=== PATIENT | female | born 1985 | race Caucasian/White ===

== ENCOUNTER → 2019-12-27 11:08 | Outpatient (BNVA) | payer MEDICARE, MEDICAID, SELFPAY | PROVIDERS: Family Provider Nurse Practitioner; PCP Nurse Practitioner Family; Visit Provider Nurse Practitioner | DX: R68.89 Other general symptoms and signs (principal); J02.9 Acute pharyngitis, unspecified; J10.1 Influenza due to other identified influenza virus with other respiratory manifestations | CPT/HCPCS: 87081; 87804; 87880 ==

== ENCOUNTER → 2020-01-01 10:23 | Outpatient (BNVA) | payer MEDICARE, MEDICAID, SELFPAY | PROVIDERS: Family Provider Nurse Practitioner; PCP Nurse Practitioner Family; Visit Provider Nurse Practitioner | DX: Z79.899 Other long term (current) drug therapy (principal) | CPT/HCPCS: 80164 ==

== ENCOUNTER → 2020-06-24 11:35 | Outpatient (BNVA) | payer MEDICARE, MEDICAID, SELFPAY | PROVIDERS: Family Provider Nurse Practitioner; PCP Nurse Practitioner Family; Visit Provider Nurse Practitioner | DX: R39.9 Unspecified symptoms and signs involving the genitourinary system (principal); F48.9 Nonpsychotic mental disorder, unspecified; F69 Unspecified disorder of adult personality and behavior; R30.0 Dysuria | CPT/HCPCS: 80053; 81003; 85025 ==

== ENCOUNTER → 2020-06-25 10:51 | Outpatient (BNVA) | payer MEDICARE, MEDICAID, SELFPAY | PROVIDERS: Family Provider Nurse Practitioner; PCP Nurse Practitioner Family; Visit Provider Nurse Practitioner | DX: R73.9 Hyperglycemia, unspecified (principal) | CPT/HCPCS: 83036 ==

== ENCOUNTER → 2020-07-08 11:28 | Outpatient (BNVA) | payer MEDICARE, MEDICAID, SELFPAY | PROVIDERS: Family Provider Nurse Practitioner; PCP Nurse Practitioner Family; Visit Provider Nurse Practitioner | DX: F48.9 Nonpsychotic mental disorder, unspecified (principal); F69 Unspecified disorder of adult personality and behavior; R30.0 Dysuria; E11.65 Type 2 diabetes mellitus with hyperglycemia | CPT/HCPCS: 81000 ==

== ENCOUNTER → 2020-08-05 12:00 | Outpatient (BNVA) | payer MEDICARE, MEDICAID, SELFPAY | PROVIDERS: Family Provider Nurse Practitioner; PCP Nurse Practitioner Family; Visit Provider Nurse Practitioner | DX: E11.65 Type 2 diabetes mellitus with hyperglycemia (principal) | CPT/HCPCS: 80048 ==

== ENCOUNTER → 2020-09-16 13:19 | Outpatient (BNVA) | payer MEDICARE, MEDICAID, SELFPAY | PROVIDERS: Family Provider Nurse Practitioner; PCP Nurse Practitioner Family; Visit Provider Nurse Practitioner | DX: E11.65 Type 2 diabetes mellitus with hyperglycemia (principal) | CPT/HCPCS: 81003 ==

== ENCOUNTER → 2020-09-30 10:11 | Outpatient (BNVA) | payer MEDICARE, MEDICAID, SELFPAY | PROVIDERS: Family Provider Nurse Practitioner; PCP Nurse Practitioner Family; Visit Provider Nurse Practitioner | DX: E11.65 Type 2 diabetes mellitus with hyperglycemia (principal); J30.89 Other allergic rhinitis | CPT/HCPCS: 80053; 81003; 83036; 85025 ==

== ENCOUNTER → 2020-12-30 11:05 | Outpatient (BNVA) | payer MEDICARE, MEDICAID, SELFPAY | PROVIDERS: Family Provider Nurse Practitioner; PCP Nurse Practitioner Family; Visit Provider Nurse Practitioner | DX: E11.65 Type 2 diabetes mellitus with hyperglycemia (principal); K21.9 Gastro-esophageal reflux disease without esophagitis; J30.89 Other allergic rhinitis | CPT/HCPCS: 80053; 80061; 82043; 83036 ==

== ENCOUNTER 2021-03-12 16:36 | Emergency (ER) | payer MEDICARE, MEDICAID, SELFPAY ==
[2021-03-12 16:41] VITALS: BMI 48.0
[2021-03-12 16:48] VITALS: BP 129/84; PULSE 67; RESP 16; O2SAT 100
--- NOTE | 2021-03-12 16:48 | ECG_ITS ---
[facility] Test Date: 2021-03-12 Pat Name: Joellen Blair Department: Room: Gender: Female [employer]visor [employer]: : [id number] Requested By: Giacomo Cheng Order Number: [id number] Reading MD: GERALD TRINH Measurements Intervals [place] Rate: 69 P: 38 ID: [id number] QRS: 16 QRSD: 90 T: -5 QT: 397 QTc: 427 Interpretive Statements SINUS RHYTHM NONSPECIFIC T-WAVE ABNORMALITY Compared to ECG 03/25/2018 10:58:00 Sinus bradycardia no longer present T-wave abnormality still present Electronically Signed On 03-12-2021 19:23:44 CDT by GERALD TRINH [id number]
--- NOTE | 2021-03-12 16:52 | ED_ITS ---
HPI - General Adult General: Chief complaint: General Medical Stated complaint: NAUSEA, CP, VERTIGO Time Seen by Provider: 03/12/21 16:44 History of Present Illness: HPI narrative: 35-year-old female brought in due to some nausea, not feeling well may be some chest discomfort and dizziness following her second Covid shot. Patient was at the Covid clinic when the symptoms happen. She is not having throat swelling, shortness of breath, wheezing or other systemic complaints. Patient does have a history of developmental delay. Associated symptoms: Reports chest pain and nausea; Deny dyspnea, headache(s), rash, palpitations or vomiting Review of Systems Const: Reports: other (Please see HPI); Denies: fever(s) or chills Eyes: Denies: change in vision ENMT: Denies: throat pain or odynophagia Card: Reports: chest pain; Denies: palpitations or irregular heart rhythm Resp: Denies: dyspnea or productive cough GI: Reports: nausea; Denies: abdominal pain or vomiting : Denies: flank pain Musc: Denies: neck pain Skin/Breast: Denies: rash or pruritus Neuro: Reports: dizziness; Denies: headache(s) PFS ED PFSH: Medical History Acid reflux Adult BMI 45.0-49.9 kg/sq m Environmental and seasonal allergies Mental and behavioral problem Surgical History History of cholecystectomy 06/05/13 History of venomous spider bite Left leg brown Family History Mother Diabetes Grandmother Diabetes Social History Smoking and tobacco status: never smoked Second hand smoke exposure: No Smoking risk assessment/counseling performed?: No Alcohol intake: never Desire information about alcohol rehabilitation?: No Counseling given: No Desire information about substance/drug rehabilitation?: No Counseling given: No Adopted: No Caregiver/support person: Yes Lives independently: No Household members: caregiver Housing: House Marital status: Single Number of children: 0 service: No Current occupational status: disabled Current occupational exposures/hazards: No Pets and animals: No History of recent travel: No Sexually active: No Current gender identity: Female Special nikos needs: No Physical Exam Const: COMMON NORMALS: no acute distress and no limitations GENERAL APPEARANCE: cooperative HENMT: COMMON NORMALS: normocephalic, moist oral mucous membranes and oropharynx normal HEAD & SCALP: normocephalic Eye: COMMON NORMALS: Equal, round and reactive pupils present PUPIL: Yes Equal, round and reactive pupils present Resp: COMMON NORMALS: normal respiratory effort and clear to auscultation bilaterally EFFORT & INSPECTION: Yes able to speak in complete sentences AUSCULTATION: clear to auscultation bilaterally, no rhonchi, no wheezes and lung sounds not diminished Cardio: COMMON NORMALS: regular rate and regular rhythm RATE: regular rate RHYTHM: regular rhythm GI: COMMON NORMALS: Soft to palpation and non-tender PALPATION: Yes Soft to palpation Extremity: COMMON NORMALS: normal to inspection Neuro: SENSORIUM/ORIENTATION: Yes alert Psych: ATTITUDE: Yes calm Skin: COMMON NORMALS: no rashes or lesions noted GENERAL SKIN EXAM: no rashes or lesions noted Course Vital Signs: Vital signs: Vital Signs Pulse Rate 69 03/12/21 17:26 Respiratory Rate 12 03/12/21 17:26 Blood Pressure 127/82 03/12/21 17:26 Pulse Oximetry 99 03/12/21 17:26 MDM - General Adult Lab Data: Labs: Lab Results 03/12/21 03/12/21 03/12/21 Range/Units 16:25 16:25 17:21 WBC Cancelled 8.4 Corrected WBC Cancelled RBC Cancelled 4.15 Hgb Cancelled 12.8 Hct Cancelled 38.6 MCV Cancelled 93.0 MCH Cancelled 30.8 MCHC Cancelled 33.2 RDW Cancelled 12.5 Plt Count Cancelled 170 MPV Cancelled 9.5 Gran % Cancelled Neut % (Auto) Cancelled 44.4 Lymph % (Auto) Cancelled 44.7 [place] % (Auto) Cancelled 7.7 Eos % (Auto) Cancelled 2.6 Baso % (Auto) Cancelled 0.4 Neut # (Auto) Cancelled 3.72 Lymph # (Auto) Cancelled 3.8 [place] # (Auto) Cancelled 0.7 Eos # (Auto) Cancelled 0.2 Baso # (Auto) Cancelled 0.0 Absolute Gran (aut o) Cancelled Nucleated RBC % (a uto) Cancelled 0 Nucleated RBCs # Cancelled 0.0 Sodium Cancelled Potassium Cancelled Chloride Cancelled Carbon Dioxide Cancelled Anion Gap Cancelled BUN Cancelled Creatinine Cancelled GFR Calculation Cancelled Glucose Cancelled Calculated Osmolal ity Cancelled Calcium Cancelled Total Bilirubin Cancelled AST Cancelled ALT Cancelled Alkaline Phosphata se Cancelled Total Protein Cancelled Albumin Cancelled Globulin Cancelled EKG Data^: EKG 1: EKG interpretation date: 03/12/21 EKG interpretation time: 17:25 Interpretation: HR 69, normal sinus, no st changes- pt moving, no acute findings Discharge Plan Discharge Prescriptions: No Action ibuprofen [IBU-200] 200 mg tablet 200 mg PO Q6H PRNRF: 0 meclizine 25 mg tablet 25 mg PO Q6H PRNRF: 0 risperidone 3 mg tablet 3 mg PO BID RF: 0 sertraline [Zoloft] 100 mg tablet 100 mg PO BID RF: 0 lidocaine HCl 2 % solution 5 ml MUCOUS MEM QID PRN (Reason: pain) Qty: 100 RF: 0 nystatin 100,000 unit/gram cream 1 applic TOPICAL BID PRN (Reason: itching) Qty: 30 RF: 0 (DME) lancets [OneTouch Delica Plus Lancet] 33 gauge misc See Rx Instructions .ROUTE .MEDSUPPLY Qty: 100 RF: 0 (DME) blood-glucose meter [Skybox SecurityTouch Ultra2 Meter] Kit See Rx Instructions .ROUTE .MEDSUPPLY Qty: 1 RF: 0 famotidine [Pepcid] 20 mg tablet 20 mg PO DAILY Qty: 30 RF: 2 montelukast 10 mg tablet 10 mg PO DAILY Qty: 30 RF: 5 acetaminophen 325 mg capsule 325 mg PO Q4H PRN (Reason: fever or pain) Qty: 30 RF: 5 Ozempic 0.25 mg or 0.5 mg(2 mg/1.5 mL) pen injector 0.5 mg SUBCUT .weekly Qty: 1.5 RF: 0 medroxyprogesterone 150 mg/mL syringe 150 mg IM .every 12 weeks Qty: 1 RF: 3 (DME) OneTouch Ultra Blue Test Strip Strip See Rx Instructions .ROUTE .MEDSUPPLY Qty: 50 RF: 5 Coding Level of Care Code ED Strip Machine Tender for Chg Fwd Exam Comprehensive
[2021-03-12] MEDS: lactated ringers 500 ML 999 ML IV (17:25)
[2021-03-12 17:26] VITALS: BP 127/82; PULSE 69; RESP 12; O2SAT 99
[2021-03-12 17:26] LABS: Basophils % 0.4 %; Eosinophils # 0.2 10^3/uL (0.0-0.8); Eosinophils % 2.6 %; Hematocrit 38.6 % (37.0-47.0); Hemoglobin 12.8 g/dL (11.5-15.3); Lymphocytes # 3.8 10^3/uL (0.8-4.8); Lymphocytes % 44.7 %; Mean Corpuscular HGB Conc 33.2 g/dL (30.0-36.0); Mean Corpuscular Hemoglobin 30.8 pg (28.0-34.0); Mean Platelet Volume 9.5 fL (7.4-10.4); Monocytes # 0.7 10^3/uL (0.2-0.9); Monocytes % 7.7 %; Neutrophils # 3.72 10^3/uL (1.8-7.7); Neutrophils % 44.4 %; Nucleated Red Blood Cells % 0 %; Platelet Count 170 10^3/cmm (130-400); Red Blood Count 4.15 10^6/uL (4.1-5.3); Red Cell Distribution Width 12.5 % (12.1-15.1); White Blood Count 8.4 10^3/uL (4.0-10.0)
[2021-03-12] MEDS: ondansetron 2 mg/ML SDV 2 mL 4 MG IVP (17:26)
[2021-03-12 17:55] LABS: Alanine Aminotransferase 9 U/L (0-33); Albumin Level 3.8 g/dL (3.5-5.2); Alkaline Phosphatase 53 IU/L (35-105); Aspartate Amino Transferase 12 U/L (0-32); Blood Urea Nitrogen 11 mg/dL (6-20); Calcium 8.2 mg/dL (8.5-10.5); Carbon Dioxide 23 mmol/L (22-29); Chloride 105 mmol/L (98-107); Globulin 2.6 g/dL (1.3-4.6); Glomerular Filtration Rate 182.7 mL/min (90-130); Glucose 129 mg/dL (65-115); Osmolality Calculated 283 mOsm/kg (285-295); Sodium 136 mmol/L (136-145); Total Bilirubin 0.2 mg/dL (0.15-1.2); Total Protein 6.4 g/dL (6.6-8.7)
[2021-03-12 18:42] VITALS: BP 137/97; PULSE 67; RESP 18; O2SAT 100
== END 2021-03-12 18:44 | disposition home or self-care (01) ==
PROVIDERS: Emergency Provider Student in an Organized Health Care Education/Training Program; PCP Nurse Practitioner Family
DX: R11.0 Nausea (principal); R07.9 Chest pain, unspecified
CPT/HCPCS: 36415; 80053; 85025; 93005; 96374; 99283; J2405

== ENCOUNTER → 2021-03-24 08:30 | Outpatient (BNVA) | payer MEDICARE, MEDICAID, SELFPAY | PROVIDERS: PCP Nurse Practitioner; Visit Provider Nurse Practitioner | DX: E11.65 Type 2 diabetes mellitus with hyperglycemia (principal); J30.89 Other allergic rhinitis | CPT/HCPCS: 80053; 80061; 83036; 85025 ==

== ENCOUNTER → 2021-06-02 09:28 | Outpatient (BNVA) | payer MEDICARE, MEDICAID, SELFPAY | PROVIDERS: PCP Nurse Practitioner; Visit Provider Nurse Practitioner Psychiatric/Mental Health | DX: F48.9 Nonpsychotic mental disorder, unspecified (principal); F69 Unspecified disorder of adult personality and behavior; E11.65 Type 2 diabetes mellitus with hyperglycemia | CPT/HCPCS: 80053; 80061; 80164; 85025 ==

== ENCOUNTER → 2021-09-22 09:17 | Outpatient (BNVA) | payer MEDICARE, MEDICAID, SELFPAY | PROVIDERS: PCP Nurse Practitioner; Visit Provider Nurse Practitioner | DX: E11.65 Type 2 diabetes mellitus with hyperglycemia (principal) | CPT/HCPCS: 80053; 80061; 83036; 85025 ==

== ENCOUNTER → 2021-11-10 09:47 | Outpatient (BNVA) | payer MEDICARE, MEDICAID, SELFPAY | PROVIDERS: PCP Nurse Practitioner; Visit Provider Nurse Practitioner | DX: E11.65 Type 2 diabetes mellitus with hyperglycemia (principal); Z11.3 Encounter for screening for infections with a predominantly sexual mode of transmission | CPT/HCPCS: 81000; 86592 ==

== ENCOUNTER → 2022-02-18 10:47 | Outpatient (BNVA) | payer MEDICARE, MEDICAID, SELFPAY | PROVIDERS: PCP Nurse Practitioner; Visit Provider Nurse Practitioner | DX: Z12.4 Encounter for screening for malignant neoplasm of cervix (principal); E11.65 Type 2 diabetes mellitus with hyperglycemia; J30.89 Other allergic rhinitis | CPT/HCPCS: 80053; 80061; 82043; 83036; 88175 ==

== ENCOUNTER 2022-03-09 08:53 | Outpatient (CLI) | payer MEDICARE, MEDICAID, SELFPAY ==
--- NOTE | 2022-03-09 09:07 | XR_ITS ---
WS: [id number] Exam: XR abdomen 1V* [id number] Date/Time of Exam: 03/09/2022 9:10 AM Reason For Exam: R15.9 - Full incontinence of feces No bowel obstruction or free air. Visualized organ margins are unremarkable in appearance. Signs of p rior cholecystectomy. Moderate amount of stool in the right and left colon. Bony structures are intac t. XR/XR abdomen 1V* [id number] IMPRESSION: 1. No acute abdominal process. 2. Moderate amount of retained stool in the colon.
== END 2022-03-09 08:54 | disposition home or self-care (01) ==
LOC: RAD 09:00
PROVIDERS: PCP Nurse Practitioner; Visit Provider Nurse Practitioner
DX: R15.9 Full incontinence of feces (principal)
CPT/HCPCS: 74018

== ENCOUNTER → 2022-04-16 14:59 | Outpatient (BNVA) | payer MEDICARE, MEDICAID, SELFPAY | PROVIDERS: PCP Nurse Practitioner; Visit Provider Nurse Practitioner Family | DX: J02.9 Acute pharyngitis, unspecified (principal); Z20.822 Contact with and (suspected) exposure to COVID-19 | CPT/HCPCS: 87071; 87635; 87880 ==

== ENCOUNTER → 2022-04-22 10:29 | Outpatient (BNVA) | payer MEDICARE, MEDICAID, SELFPAY | PROVIDERS: PCP Nurse Practitioner; Visit Provider Nurse Practitioner | DX: K59.01 Slow transit constipation (principal); E11.65 Type 2 diabetes mellitus with hyperglycemia; J30.89 Other allergic rhinitis; K21.9 Gastro-esophageal reflux disease without esophagitis; M79.10 Myalgia, unspecified site; Z68.41 Body mass index [BMI] 40.0-44.9, adult | CPT/HCPCS: 80053; 83036; 85025 ==

== ENCOUNTER → 2022-08-03 14:44 | Outpatient (BNVA) | payer MEDICARE, MEDICAID, SELFPAY | PROVIDERS: PCP Nurse Practitioner; Visit Provider Nurse Practitioner | DX: E11.65 Type 2 diabetes mellitus with hyperglycemia (principal); Z30.42 Encounter for surveillance of injectable contraceptive; J30.89 Other allergic rhinitis; K59.01 Slow transit constipation | CPT/HCPCS: 80053; 81000; 83036 ==

== ENCOUNTER → 2022-09-02 08:42 | Outpatient (BNVA) | payer MEDICARE, MEDICAID, SELFPAY | PROVIDERS: PCP Nurse Practitioner; Visit Provider Psychiatry & Neurology Psychiatry | DX: F39 Unspecified mood [affective] disorder (principal) | CPT/HCPCS: 80053; 80164; 85025 ==

== ENCOUNTER → 2022-10-26 08:59 | Outpatient (BNVA) | payer MEDICARE, MEDICAID, SELFPAY | PROVIDERS: PCP Nurse Practitioner; Visit Provider Nurse Practitioner | DX: E11.65 Type 2 diabetes mellitus with hyperglycemia (principal); J30.89 Other allergic rhinitis; K21.9 Gastro-esophageal reflux disease without esophagitis; E66.9 Obesity, unspecified | CPT/HCPCS: 80053; 83036 ==

== ENCOUNTER → 2023-01-18 08:37 | Outpatient (BNVA) | payer MEDICARE, MEDICAID, SELFPAY | PROVIDERS: PCP Nurse Practitioner; Visit Provider Nurse Practitioner | DX: E11.65 Type 2 diabetes mellitus with hyperglycemia (principal); J30.89 Other allergic rhinitis; Z30.42 Encounter for surveillance of injectable contraceptive | CPT/HCPCS: 82043 ==

== ENCOUNTER → 2023-03-03 10:23 | Outpatient (BNVA) | payer MEDICARE, MEDICAID, SELFPAY | PROVIDERS: PCP Nurse Practitioner; Visit Provider Nurse Practitioner | DX: E11.65 Type 2 diabetes mellitus with hyperglycemia (principal) | CPT/HCPCS: 80053; 81000; 83036; 85025 ==

== ENCOUNTER 2023-03-17 11:09 | Emergency (ER) | payer MEDICARE, MEDICAID, SELFPAY ==
[2023-03-17 11:42] VITALS: BP 115/85; PULSE 81; RESP 16; TEMP 36.4; O2SAT 99; BMI 33.3
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
== END 2023-03-17 13:38 | disposition home or self-care (01) ==
PROVIDERS: Emergency Provider Physician Assistant; PCP Nurse Practitioner
DX: Z04.1 Encounter for examination and observation following transport accident (principal); F79 Unspecified intellectual disabilities; V89.2XXA Person injured in unspecified motor-vehicle accident, traffic, initial encounter
CPT/HCPCS: 99282

== ENCOUNTER → 2023-04-26 11:24 | Outpatient (BNVA) | payer MEDICARE, MEDICAID, SELFPAY | PROVIDERS: PCP Nurse Practitioner; Visit Provider Nurse Practitioner | DX: F39 Unspecified mood [affective] disorder (principal); F48.9 Nonpsychotic mental disorder, unspecified; F69 Unspecified disorder of adult personality and behavior | CPT/HCPCS: 80053; 80164; 85025 ==

== ENCOUNTER → 2023-05-05 10:14 | Outpatient (BNVA) | payer MEDICARE, MEDICAID, SELFPAY | PROVIDERS: PCP Nurse Practitioner; Visit Provider Nurse Practitioner | DX: K59.01 Slow transit constipation (principal); R15.9 Full incontinence of feces | CPT/HCPCS: 74018 ==

== ENCOUNTER → 2023-09-06 13:48 | Outpatient (BNVA) | payer MEDICARE, MEDICAID, SELFPAY | PROVIDERS: PCP Nurse Practitioner; Visit Provider Nurse Practitioner | DX: E11.65 Type 2 diabetes mellitus with hyperglycemia (principal) | CPT/HCPCS: 80053; 83036 ==

== ENCOUNTER → 2023-10-21 13:29 | Outpatient (BNVA) | payer MEDICARE, MEDICAID, SELFPAY | PROVIDERS: PCP Nurse Practitioner; Visit Provider Podiatrist Foot & Ankle Surgery | DX: B35.1 Tinea unguium (principal); L84 Corns and callosities; G62.9 Polyneuropathy, unspecified; E11.42 Type 2 diabetes mellitus with diabetic polyneuropathy | CPT/HCPCS: 11056; 11721; 99203 ==

== ENCOUNTER 2023-11-05 13:48 | Outpatient (CLI) | payer MEDICARE, MEDICAID, SELFPAY ==
[2023-11-06 23:45] LABS: Clostridium Difficile PCR NOT DETECTED (NOT DETECTED)
== END 2023-11-05 13:49 | disposition home or self-care (01) ==
PROVIDERS: Nurse Practitioner Family; PCP Nurse Practitioner; Visit Provider Nurse Practitioner
DX: R19.7 Diarrhea, unspecified (principal)
CPT/HCPCS: 87493

== ENCOUNTER → 2023-11-29 15:03 | Outpatient (BNVA) | payer MEDICARE, MEDICAID, SELFPAY | PROVIDERS: PCP Nurse Practitioner; Visit Provider Nurse Practitioner | DX: Z11.3 Encounter for screening for infections with a predominantly sexual mode of transmission (principal); E11.65 Type 2 diabetes mellitus with hyperglycemia | CPT/HCPCS: 80053; 80061; 81003; 83036; 85025; 86592; 87086 ==

== ENCOUNTER 2023-11-30 13:18 | Outpatient (CLI) | payer MEDICARE, MEDICAID, SELFPAY ==
--- NOTE | 2023-11-30 13:22 | XR_ITS ---
WS: [id number] ABDOMEN 1 VIEW(S) HISTORY: R15.9 - Full incontinence of feces COMPARISON: None available. Normal amount of fecal material throughout the colon. No significant impaction identified. No suspicious calcifications or masses. No bone abnormality. Prior cholecystectomy. IMPRESSION: Normal bowel gas pattern. No significant fecal impaction.
== END 2023-11-30 13:19 | disposition home or self-care (01) ==
LOC: LAB 13:19
PROVIDERS: PCP Nurse Practitioner; Visit Provider Nurse Practitioner
DX: R15.9 Full incontinence of feces (principal)
CPT/HCPCS: 74018

== ENCOUNTER 2023-12-25 20:19 | Emergency (ER) | payer MEDICARE, MEDICAID, SELFPAY ==
[2023-12-25 20:25] VITALS: BP 117/78; PULSE 74; RESP 16; TEMP 36.3; O2SAT 98; BMI 33.4
[2023-12-25 20:51] VITALS: BP 99/66; PULSE 75; RESP 14; O2SAT 100
[2023-12-25 20:59] LABS: Add Urine Microscopic? YES; Bilirubin Urine Neg (Negative); Blood Urine Neg (Negative); Glucose Urine UA Norm (Normal); Ketones Urine Negative (Negative); Leukocyte Esterase Urine 1+ (Negative); Nitrate Urine Negative (Negative); Protein Urine Neg (Negative); Specific Gravity, Urine 1.005 (1.005-1.030); Urine Appearance Clear (CLEAR); Urine Color Yellow (Yellow); Urobilinogen Urine Norm (Negative); pH Urine 6.5 (5-7)
[2023-12-25 21:01] LABS: RBC Urine 0-4 /hpf (0-2)
[2023-12-25 21:02] LABS: Add Urine Culture? Yes; Bacteria Urine TRACE /hpf; Squamous Epithelial Cell Urine 0-4 /hpf (0-5)
[2023-12-25 21:08] LABS: Basophils % 0.4 %; Eosinophils # 0.3 10^3/uL (0.0-0.8); Eosinophils % 3.7 %; Hematocrit 40.4 % (36-47); Lymphocytes # 3.9 10^3/uL (0.8-4.8); Mean Corpuscular HGB Conc 34.9 g/dL (30-55); Mean Corpuscular Hemoglobin 33.8 pg (27-33); Mean Corpuscular Volume 96.9 fl (85-98); Mean Platelet Volume 9.8 fL (7.4-10.4); Monocytes # 0.6 10^3/uL (0.2-0.9); Monocytes % 7.4 %; Neutrophils # 3.27 10^3/uL (1.8-7.7); Neutrophils % 40.3 %; Nucleated Red Blood Cells % 0 %; Platelet Count 94 10^3/cmm (157-399); Red Blood Count 4.17 10^6/uL (3.85-5.65); Red Cell Distribution Width 12.2 % (12.1-15.1); White Blood Count 8.12 10^3/uL (3.29-11.43)
[2023-12-25 21:24] LABS: Lactic Sepsis W/Reflex 1.1 mmol/L (0.5-2.2)
[2023-12-25 21:25] LABS: Alanine Aminotransferase 17 U/L (0-33); Albumin Level 3.8 g/dL (3.5-5.2); Alkaline Phosphatase 54 U/L (35-105); Anion Gap 12.5 (5-19); Aspartate Amino Transferase 25 U/L (0-32); Blood Urea Nitrogen 13 mg/dL (6-20); Calcium 8.7 mg/dL (8.5-10.5); Carbon Dioxide 26 mmol/L (22-29); Chloride 103 mmol/L (98-107); Globulin 2.6 g/dL (1.3-4.6); Glomerular Filtration Rate 94.2 mL/min (90-130); Glucose 107 mg/dL (65-115); HCG, Serum Qual Negative (Negative); Lipase 33 U/L (13-60); Osmolality Calculated 287 mOsm/kg (285-295); Potassium 3.5 mmol/L (3.5-5.1); Sodium 138 mmol/L (136-145); Total Bilirubin 0.3 mg/dL (0.15-1.2); Total Protein 6.4 g/dL (6.6-8.7)
--- NOTE | 2023-12-25 21:40 | CTR_ITS ---
PROCEDURE INFORMATION: Exam: CT Abdomen And Pelvis Without Contrast Exam date and time: 12/25/2023 10:10 PM Age: 38 years old Clinical indication: Abdominal pain; Prior surgery; Surgery date: 6+ months; Surgery type: Gb; Patient HX: Left flank pain with dysuria. TECHNIQUE: Imaging protocol: Computed tomography of the abdomen and pelvis without contrast. Radiation optimization: All CT scans at this facility use at least one of these dose optimization techniques: automated exposure control; mA and/or kV adjustment per patient size (includes targeted exams where dose is matched to clinical indication); or iterative reconstruction. COMPARISON: CR XR abdomen 1V* [id number] 11/30/2023 1:41 PM RADIATION DOSE METRICS: Total DLP (mGy-cm): 884.89 FINDINGS: Lungs: Small bilateral pleural effusions. Diaphragm: No evidence of diaphragmatic defect. Liver: No evidence of focal hepatic lesion within limitation of a noncontrast exam. Gallbladder and bile ducts: Status post cholecystectomy. No evidence of intrahepatic or extrahepatic biliary dilatation. Pancreas: Grossly unremarkable. Spleen: Grossly unremarkable. Adrenal glands: Grossly unremarkable. Kidneys and ureters: No gross renal parenchymal abnormality. No evidence of hydronephrosis or ureteral stone. A pelvic phleboliths is noted in the left hemipelvis (image 183 of the axial series 3). Stomach and bowel: No evidence of bowel obstruction or perienteric inflammatory changes. Appendix: Normal appendix. Intraperitoneal space: No evidence of free air or fluid collection. Vasculature: No evidence of aneurysmal dilitation of abdominal aorta. Lymph nodes: No evidence of adenopathy. Urinary bladder: Mild bladder wall thickening/haziness. Otherwise grossly unremarkable. Reproductive: Question prior supracervical hysterectomy. There is mild laxity of the pelvic floor. Bones/joints: No evidence of acute fracture or aggresive osseous lesion. Soft tissues: No evidence of fluid collection or hematoma in the superficial soft tissues. CT/CT kidney stone [id number] IMPRESSION: 1. Possible cystitis. Otherwise no evidence of acute abnormality in the abdomen or pelvis within limitations of a noncontrast exam. 2. Small bilateral pleural effusions.
--- NOTE | 2023-12-25 21:43 | W.ED.ABDPA2 ---
HPI - Abdominal Pain General: Chief Complaint: Abdominal Pain Stated Complaint: pain low left abd and stomach Time Seen by Provider: 12/25/23 20:38 History of Present Illness: 38-year-old female with a history of developmental delay. She presents with left lower quadrant and left flank pain that started today. She did not eat supper, which is abnormal for her. She complains of some diarrhea, and dysuria. No vomiting. No fever. No history of kidney stone. She does have a history of cholecystectomy. Associated Symptoms: Reports diarrhea, dysuria and nausea; Denies chills, fever(s), hematochezia and vomiting Review of Systems Const: Denies: fever(s), chills or body aches Eyes: Denies: change in vision Card: Denies: chest pain or palpitations Resp: Denies: dyspnea, productive cough, non-productive cough or wheezing GI: Reports: abdominal pain, nausea and diarrhea; Denies: vomiting or hematochezia : Reports: flank pain and dysuria; Denies: difficulty voiding Skin/Breast: Denies: rash Neuro: Denies: headache(s), weakness in extremities, dizziness or confusion PFSH ED PFSH: Medical History Obesity, Class I, BMI 30-34.9 Depo-Provera contraceptive status Acid reflux Environmental and seasonal allergies Mental and behavioral problem Surgical History History of venomous spider bite Left leg brown History of cholecystectomy 06/05/13 Family History Mother Diabetes Grandmother Diabetes Social History Smoking and tobacco/nicotine status: never used tobacco/nicotine Second hand smoke exposure: No Alcohol intake: never Substance/Drug Use: never Adopted: No Caregiver/support person: Yes Lives independently: No Household members: caregiver Housing: House Marital status: Single Number of children: 0 service: No Current occupational status: disabled Current occupational exposures/hazards: No Pets and animals: No Sexually active: No Do you think of yourself as: Straight/Heterosexual Current gender identity: Female Special nikos needs: No Physical Exam Const: COMMON NORMALS: no acute distress GENERAL APPEARANCE: cooperative; not ill appearing and not frail appearing HENMT: COMMON NORMALS: normocephalic, atraumatic and Normal external nose present HEAD & SCALP: normocephalic and atraumatic FACE & SINUS: normal facial exam and face symmetric NOSE: Normal external nose present Eye: COMMON NORMALS: Equal, round and reactive pupils present and EOMs intact bilaterally PUPIL: Yes Equal, round and reactive pupils present Neck/C-Spine: GENERAL: Yes trachea midline Chest: CHEST: Yes Symmetrical chest wall rise Resp: COMMON NORMALS: normal respiratory effort, No retractions, No use of accessory muscles and clear to auscultation bilaterally AUSCULTATION: clear to auscultation bilaterally Cardio: COMMON NORMALS: regular rate and regular rhythm RATE: regular rate RHYTHM: regular rhythm GI: COMMON NORMALS: Normal to inspection, nondistended, normoactive bowel sounds present PALPATION: Yes Tenderness to palpation present (GI) Details: LLQ : BLADDER/KIDNEY EXAM: Yes CVA tenderness on the left Back/Pelvis: GENERAL BACK: Yes CVA tenderness Extremity: COMMON NORMALS: no pedal edema Neuro: AVINASH COMA SCALE: document GCS findings [place] coma scale eye opening: Spontaneous [place] coma scale verbal response: Orientated [place] coma scale motor response: Obey commands [place] coma scale total score: 15 SENSORY EXAM: Yes extremities (intact) Psych: COMMON NORMALS: speech normal SPEECH: Yes normal speech Skin: COMMON NORMALS: no rashes or lesions noted GENERAL SKIN EXAM: no rashes or lesions noted Course Vital Signs: Vital signs: Vital Signs Temperature 97.4 F L 12/25/23 20:25 Pulse Rate 60 12/25/23 22:05 Respiratory Rate 18 12/25/23 22:05 Blood Pressure 111/80 12/25/23 22:05 Pulse Oximetry 100 12/25/23 22:05 Oxygen Delivery Me thod Room Air 12/25/23 22:05 MDM - Abdominal Pain Medical Decision Making Urinalysis shows urinary tract infection with hematuria. Platelet count is 94. Other laboratory is not remarkable. CT shows cystitis but no other evidence of acute abdominal pathology including kidney stone. Will allow discharge. Treatment for UTI. To return for worsening symptoms. Lab Data 12/25/23 20:59 12/25/23 20:59 Labs/Radiology: Radiology Impressions Abdomen/Pelvis CT 12/25/23 21:40 IMPRESSION: 1. Possible cystitis. Otherwise no evidence of acute abnormality in the abdomen or pelvis within limitations of a noncontrast exam. 2. Small bilateral pleural effusions. Laboratory Results WBC 8.12 10^3/uL (3.29-11.43) 12/25/23 20:59 RBC 4.17 10^6/uL (3.85-5.65) 12/25/23 20:59 Hgb 14.10 g/dL (11.27-16.99) 12/25/23 20:59 Hct 40.4 % (36-47) 12/25/23 20:59 MCV 96.9 fl (85-98) 12/25/23 20:59 MCH 33.8 pg (27-33) H 12/25/23 20:59 MCHC 34.9 g/dL (30-55) 12/25/23 20:59 RDW 12.2 % (12.1-15.1) 12/25/23 20:59 Plt Count 94 10^3/cmm (157-399) L 12/25/23 20:59 MPV 9.8 fL (7.4-10.4) 12/25/23 20:59 Neut % (Auto) 40.3 % 12/25/23 20:59 Lymph % (Auto) 48.0 % 12/25/23 20:59 [place] % (Auto) 7.4 % 12/25/23 20:59 Eos % (Auto) 3.7 % 12/25/23 20:59 Baso % (Auto) 0.4 % 12/25/23 20:59 Neut # (Auto) 3.27 10^3/uL (1.8-7.7) 12/25/23 20:59 Lymph # (Auto) 3.9 10^3/uL (0.8-4.8) 12/25/23 20:59 [place] # (Auto) 0.6 10^3/uL (0.2-0.9) 12/25/23 20:59 Eos # (Auto) 0.3 10^3/uL (0.0-0.8) 12/25/23 20:59 Baso # (Auto) 0.0 10^3/uL (0.0-0.1) 12/25/23 20:59 Nucleated RBC % (auto) 0 % 12/25/23 20:59 Nucleated RBCs # 0.0 /100WBC 12/25/23 20:59 Sodium 138 mmol/L (136-145) 12/25/23 20:59 Potassium 3.5 mmol/L (3.5-5.1) 12/25/23 20:59 Chloride 103 mmol/L (98-107) 12/25/23 20:59 Carbon Dioxide 26 mmol/L (22-29) 12/25/23 20:59 Anion Gap 12.5 (5-19) 12/25/23 20:59 BUN 13 mg/dL (6-20) 12/25/23 20:59 Creatinine 0.7 mg/dL (0.5-0.9) 12/25/23 20:59 GFR Calculation 94.2 mL/min (90-130) 12/25/23 20:59 Glucose 107 mg/dL (65-115) 12/25/23 20:59 Calculated Osmolality 287 mOsm/kg (285-295) 12/25/23 20:59 Lactic Acid 1.1 mmol/L (0.5-2.2) 12/25/23 20:59 Calcium 8.7 mg/dL (8.5-10.5) 12/25/23 20:59 Total Bilirubin 0.3 mg/dL (0.15-1.2) 12/25/23 20:59 AST 25 U/L (0-32) 12/25/23 20:59 ALT 17 U/L (0-33) 12/25/23 20:59 Alkaline Phosphatase 54 U/L (35-105) 12/25/23 20:59 C-Reactive Protein 3.0 mg/L (0.0-4.9) 12/25/23 20:59 Total Protein 6.4 g/dL (6.6-8.7) L 12/25/23 20:59 Albumin 3.8 g/dL (3.5-5.2) 12/25/23 20:59 Globulin 2.6 g/dL (1.3-4.6) 12/25/23 20:59 Lipase 33 U/L (13-60) 12/25/23 20:59 HCG, Qual Negative (Negative) 12/25/23 20:59 Urine Color Yellow (Yellow) 12/25/23 20:50 Urine Appearance Clear (CLEAR) 12/25/23 20:50 Urine pH 6.5 (5-7) 12/25/23 20:50 Ur Specific [place] 1.005 (1.005-1.030) 12/25/23 20:50 Urine Protein Neg (Negative) 12/25/23 20:50 Urine Glucose (UA) Norm (Normal) 12/25/23 20:50 Urine Ketones Negative (Negative) 12/25/23 20:50 Urine Blood Neg (Negative) 12/25/23 20:50 Urine Nitrate Negative (Negative) 12/25/23 20:50 Urine Bilirubin Neg (Negative) 12/25/23 20:50 Urine Urobilinogen Norm mg/dL (Negative) 12/25/23 20:50 Ur Leukocyte Esterase 1+ (Negative) H 12/25/23 20:50 Urine RBC 0-4 /hpf (0-2) H 12/25/23 20:50 Urine WBC 5-10 /hpf (0-5) H 12/25/23 20:50 Ur Squamous Epith Cells 0-4 /hpf (0-5) H 12/25/23 20:50 Amorphous Sediment Not Reportable 12/25/23 20:50 Urine Bacteria Trace /hpf (NONE) 12/25/23 20:50 Urine Yeast Trace /hpf 12/25/23 20:50 All radiology interpretation(s) finalized by discharge Discharge Plan Discharge Patient Disposition: Home Clinical Impression: Pyelonephritis Condition: Stable Prescriptions: New ketorolac 10 mg tablet 10 mg PO TID PRN (Reason: pain) Qty: 10 0RF Bactrim DS 800-160 mg tablet 1 tab PO BID 7 Days Qty: 14 0RF No Action sertraline [Zoloft] 100 mg tablet 100 mg PO DAILY@0800 (DME) lancets [OneTouch Delica Plus Lancet] 33 gauge misc See Rx Instructions .ROUTE .MEDSUPPLY Qty: 100 0RF Rx Instructions: daily (DME) blood-glucose meter [Ace[employer] TechnologiesTouch Ultra2 Meter] Kit See Rx Instructions .ROUTE .MEDSUPPLY Qty: 1 0RF Rx Instructions: daily acetaminophen 325 mg capsule 325 mg PO Q4H PRN (Reason: fever or pain) Qty: 30 5RF Cepacol Sore Throat (neftali-men) 15-3.6 mg lozenge 1 jose maria mucous membrane Q2H PRN (Reason: sore throat) Qty: 16 5RF Dimetapp DM Cold-Cough (PE) 1-2.5-5 mg/5 mL solution 5 ml PO Q4H PRN (Reason: cough and congestion) Qty: 118 5RF calcium carbonate [Tums] 200 mg calcium (500 mg) tablet,chewable 200 mg PO TID PRN (Reason: dyspepsia) Qty: 30 5RF ibuprofen [IBU-200] 200 mg tablet 200 mg PO Q6H PRN (Reason: fever/pain) Qty: 30 2RF azelastine 137 mcg (0.1 %) aerosol,spray 2 spray intranasal .at bedtime Qty: 30 2RF Rx Instructions: administer into each nostril calcium carbonate-vitamin D3 [Os-Usman 500 + D3] 500 mg-15 mcg (600 unit) tablet 1 tab PO .2 times day Qty: 60 5RF cetirizine [Zyrtec] 10 mg tablet 10 mg PO DAILY Qty: 30 5RF fluticasone propionate [Flonase Allergy Relief] 50 mcg/actuation spray,suspension 1 spray intranasal DAILY Qty: 16 5RF Rx Instructions: administer into each nostril semaglutide 0.25 mg or 0.5 mg(2 mg/1.5 mL) pen injector 0.25 mg SUBCUT Q7D Qty: 1.5 5RF Rx Instructions: take on Wednesday (DME) pen needle, diabetic 33 gauge x needle See Rx Instructions .ROUTE .MEDSUPPLY Qty: 100 5RF Rx Instructions: 1 time week Senna Plus 8.6-50 mg capsule 1 tab-cap PO .at bedtime Qty: 30 5RF Hold Instructions: Doctor's Order [id number]-rbizznnwz-QH 3.5-10,000-1 mg/mL-unit/mL-% drops,suspension 4 drp otic (ear) TID 10 Days Qty: 10 0RF Rx Instructions: right ear medroxyprogesterone 150 mg/mL syringe 150 mg IM .every 12 weeks Qty: 1 3RF (DME) diabetic shoes with 3 inserts See Rx Instructions .Route .MEDSUPPLY Qty: 1 0RF Rx Instructions: As directed to the angel danielle (EVA) blood sugar diagnostic Strip See Rx Instructions .ROUTE .MEDSUPPLY Qty: 50 5RF Rx Instructions: one daily risperidone 4 mg tablet 2 mg PO TID@08,15,20 divalproex 500 mg tablet extended release 24 hr 1,000 mg PO BEDTIME@2000 divalproex 250 mg tablet extended release 24 hr 250 mg PO BID@0800,1400 Discharge Orders: Discharge ED (Routine); Ordered 12/25/23 Ordered By: Jesus Alberto Gutierrez Referrals: Ying Li, OMAIRA-C [Primary Care Provider] - 1-3 days Patient Instructions: Kidney Infection (ED), Opioid Safety, Pain Management Activity Restrictions/Additional Instructions: Antibiotics as directed. Use pain medication as needed. Return for worsening pain despite treatment, vomiting liquids or medications, fever despite 2-3 more doses of antibiotics, other concerning symptoms. See your doctor next week. Coding Level of Care Code ED Risk And Compliance Analytics Director for Amanda Olivas
[2023-12-25] MEDS: ondansetron 2 mg/ML SDV 2 mL 4 MG IVP (22:02)
[2023-12-25 22:03] VITALS: RESP 18; O2SAT 100
[2023-12-25] MEDS: morphine 4 mg/mL SDV 1 mL IVP (22:03)
[2023-12-25 22:05] VITALS: BP 111/80; PULSE 60; RESP 18; O2SAT 100
[2023-12-25] MEDS: sulfamethoxazole-trimeth DS 160-800 mg Tablet 1 TAB PO (23:32)
[2023-12-25 23:47] VITALS: BP 111/80; PULSE 67; O2SAT 98
== END 2023-12-25 23:49 | disposition home or self-care (01) ==
PROVIDERS: Emergency Provider Emergency Medicine; PCP Nurse Practitioner
DX: N12 Tubulo-interstitial nephritis, not specified as acute or chronic (principal)
CPT/HCPCS: 36415; 74176; 80053; 81001; 83605; 83690; 84703; 85025; 86140; 87086; 96374; 96375; 99285; J2270; J2405

== ENCOUNTER → 2024-01-10 09:43 | Outpatient (BNVA) | payer MEDICARE, MEDICAID, SELFPAY | PROVIDERS: PCP Nurse Practitioner; Visit Provider Nurse Practitioner | DX: N39.0 Urinary tract infection, site not specified (principal) | CPT/HCPCS: 81000 ==

== ENCOUNTER → 2024-01-17 11:13 | Outpatient (BNVA) | payer MEDICARE, MEDICAID, SELFPAY | PROVIDERS: PCP Nurse Practitioner; Visit Provider Podiatrist Foot & Ankle Surgery | DX: E11.42 Type 2 diabetes mellitus with diabetic polyneuropathy (principal); B35.1 Tinea unguium; L84 Corns and callosities; G62.9 Polyneuropathy, unspecified | CPT/HCPCS: 11721 ==

== ENCOUNTER → 2024-02-10 10:09 | Outpatient (BNVA) | payer MEDICARE, MEDICAID, SELFPAY | PROVIDERS: PCP Nurse Practitioner; Visit Provider Nurse Practitioner | DX: D75.839 Thrombocytosis, unspecified (principal) | CPT/HCPCS: 85025 ==

== ENCOUNTER 2024-03-24 15:25 | Inpatient (IN) | payer MEDICARE, MEDICAID, SELFPAY ==
[2024-03-24 15:31] VITALS: BP 103/69; PULSE 77; RESP 18; TEMP 36.7; O2SAT 100; BMI 34.0
--- NOTE | 2024-03-24 16:10 | ED.C_ITS ---
HPI - Psych 2 General: Chief Complaint: Psychiatric Symptoms Stated Complaint: SI Time Seen by Provider: 03/24/24 15:48 Source: patient and other (care staff) Mode of arrival: ambulatory Limitations: no limitations History of Present Illness: Patient is a 38-year-old female who presents along with her care staff from her [facility] for concerns of self harming behaviors, suicidal statements, and other dangerous behaviors. Care staff states yesterday [place] day rehab, [place] Care staff states today she took a pair of scissors and a pizza slicer and held it to her arms/wrists and attempted to cut herself in a reported suicide attempt. Patient states she feels very depressed and misses her mother. Care staff is worried that they are not able to keep patient safe at home with her current behaviors and is requesting hospitalization. MD complaint: suicidal ideation, feels depressed and other (dangerous behaviors) Onset (ago): day(s) History of same: Yes Relieving factors: none Exacerbating factors: none Associated psychiatric symptoms: depression and suicidal ideation Associated symptoms: Reports depression and suicidal ideation; Deny auditory hallucinations, visual hallucinations or homicidal ideation Treatments prior to arrival: none If self harm: admits thoughts of self harm and has acted on plan Review of Systems 2 Const: Denies: fever(s) or chills Card: Denies: chest pain, palpitations, lightheadedness or syncope Resp: Denies: dyspnea GI: Denies: abdominal pain, nausea, vomiting or diarrhea Skin/Breast: Denies: rash Neuro: Denies: headache(s) Psych: Reports: anxiety, depression, mood swings, suicidal ideation and other; Denies: visual hallucinations, auditory hallucinations or homicidal ideation PFSH ED 2 PFSH: Medical History Obesity, Class I, BMI 30-34.9 Depo-Provera contraceptive status Acid reflux Environmental and seasonal allergies Mental and behavioral problem Surgical History History of venomous spider bite Left leg brown History of cholecystectomy 06/05/13 Family History Mother Diabetes Grandmother Diabetes Social History (Reviewed 03/24/24 @ 17:54 by ROSALINE Root Smoking and tobacco/nicotine status: never used tobacco/nicotine Second hand smoke exposure: No Alcohol intake: never Substance/Drug Use: never Adopted: No Caregiver/support person: Yes Lives independently: No Household members: caregiver Housing: House Marital status: Single Number of children: 0 service: No Current occupational status: disabled Current occupational exposures/hazards: No Pets and animals: No Sexually active: No Do you think of yourself as: Straight/Heterosexual Current gender identity: Female Special nikos needs: No Physical Exam 2 Const: COMMON NORMALS: no acute distress, alert and well nourished GENERAL APPEARANCE: cooperative OTHER: baseline cognitive delay HENMT: COMMON NORMALS: normocephalic and atraumatic HEAD & SCALP: normal to inspection, normocephalic and atraumatic Neuro: COMMON NORMALS: moves all extremities, no focal motor deficits and no sensory deficits noted SENSORIUM/ORIENTATION: Yes alert Psych: COMMON NORMALS: speech normal, activity/motor behavior normal, denies hallucinations and denies homicidal ideation ATTITUDE: Yes calm A CTIVITY/MOTOR BEHAVIOR: Yes appropriate eye contact SPEECH: Yes normal speech MOOD & AFFECT: Yes tearful MEMORY/COGNITION: Yes cognition grossly impaired INSIGHT: Limited insight present (Psych) JUDGEMENT: Limited judgement present (Psych) Course 2 Consultations: Consultation #1: Dr. Proctor-will telepsych with patient and decide disposition from there -he will admit patient to [facility] Vital Signs: Vital signs: Vital Signs Temperature 98.1 F 03/24/24 15:31 Pulse Rate 77 03/24/24 15:31 Respiratory Rate 18 03/24/24 15:31 Blood Pressure 103/69 03/24/24 15:31 Pulse Oximetry 100 03/24/24 15:31 Oxygen Delivery Me thod Room Air 03/24/24 15:31 MDM - Psych Medical Decision Making Patient will be an admit to NPU to Dr. Proctor. Lab Data 03/24/24 20:06 03/24/24 20:06 Laboratory Results WBC 6.95 10^3/uL (3.29-11.43) 03/24/24 20:06 RBC 4.39 10^6/uL (3.85-5.65) 03/24/24 20:06 Hgb 14.90 g/dL (11.27-16.99) 03/24/24 20:06 Hct 43.1 % (36-47) 03/24/24 20:06 MCV 98.2 fl (85-98) H 03/24/24 20:06 MCH 33.9 pg (27-33) H 03/24/24 20:06 MCHC 34.6 g/dL (30-55) 03/24/24 20:06 RDW 12.0 % (12.1-15.1) L 03/24/24 20:06 Plt Count 124 10^3/cmm (157-399) L 03/24/24 20:06 MPV 9.4 fL (7.4-10.4) 03/24/24 20:06 Neut % (Auto) 42.4 % 03/24/24 20:06 Lymph % (Auto) 48.1 % 03/24/24 20:06 [place] % (Auto) 5.8 % 03/24/24 20:06 Eos % (Auto) 3.0 % 03/24/24 20:06 Baso % (Auto) 0.4 % 03/24/24 20:06 Neut # (Auto) 2.95 10^3/uL (1.8-7.7) 03/24/24 20:06 Lymph # (Auto) 3.3 10^3/uL (0.8-4.8) 03/24/24 20:06 [place] # (Auto) 0.4 10^3/uL (0.2-0.9) 03/24/24 20:06 Eos # (Auto) 0.2 10^3/uL (0.0-0.8) 03/24/24 20:06 Baso # (Auto) 0.0 10^3/uL (0.0-0.1) 03/24/24 20:06 Nucleated RBC % (auto) 0 % 03/24/24 20:06 Nucleated RBCs # 0.0 /100WBC 03/24/24 20:06 Sodium 141 mmol/L (136-145) 03/24/24 20:06 Potassium 3.8 mmol/L (3.5-5.1) 03/24/24 20:06 Chloride 107 mmol/L (98-107) 03/24/24 20:06 Carbon Dioxide 27 mmol/L (22-29) 03/24/24 20:06 Anion Gap 10.8 (5-19) 03/24/24 20:06 BUN 11 mg/dL (6-20) 03/24/24 20:06 Creatinine 0.7 mg/dL (0.5-0.9) 03/24/24 20:06 GFR Calculation 94.2 mL/min (90-130) 03/24/24 20:06 Glucose 158 mg/dL (65-115) H 03/24/24 20:06 Calculated Osmolality 295 mOsm/kg (285-295) 03/24/24 20:06 Calcium 8.9 mg/dL (8.5-10.5) 03/24/24 20:06 Total Bilirubin 0.3 mg/dL (0.15-1.2) 03/24/24 20:06 AST 21 U/L (0-32) 03/24/24 20:06 ALT 19 U/L (0-33) 03/24/24 20:06 Alkaline Phosphatase 49 U/L (35-105) 03/24/24 20:06 Total Protein 7.3 g/dL (6.6-8.7) 03/24/24 20:06 Albumin 4.5 g/dL (3.5-5.2) 03/24/24 20:06 Globulin 2.8 g/dL (1.3-4.6) 03/24/24 20:06 HCG, Qual Negative (Negative) 03/24/24 20:06 Urine Color Yellow (Yellow) 03/24/24 17:36 Urine Appearance Clear (CLEAR) 03/24/24 17:36 Urine pH 6 (5-7) 03/24/24 17:36 Ur Specific [place] 1.010 (1.005-1.030) 03/24/24 17:36 Urine Protein Neg (Negative) 03/24/24 17:36 Urine Glucose (UA) Norm (Normal) 03/24/24 17:36 Urine Ketones Negative (Negative) 03/24/24 17:36 Urine Blood Neg (Negative) 03/24/24 17:36 Urine Nitrate Negative (Negative) 03/24/24 17:36 Urine Bilirubin Neg (Negative) 03/24/24 17:36 Urine Urobilinogen Neg mg/dL (Negative) 03/24/24 17:36 Ur Leukocyte Esterase 1+ (Negative) H 03/24/24 17:36 Urine RBC Rare /hpf (0-2) 03/24/24 17:36 Urine WBC 0-4 /hpf (0-5) H 03/24/24 17:36 Ur Squamous Epith Cells 0-4 /hpf (0-5) H 03/24/24 17:36 Amorphous Sediment Not Reportable 03/24/24 17:36 Urine Bacteria Trace /hpf (NONE) 03/24/24 17:36 Urine Mucus Trace /hpf 03/24/24 17:36 Salicylates < 0.3 mg/dL (3-10) L 03/24/24 20:06 Urine Opiates Screen Negative ng/mL (Negative) 03/24/24 17:36 Acetaminophen < 5.0 ug/mL (10-30) L 03/24/24 20:06 Ur Barbiturates Screen Negative ng/mL (Negative) 03/24/24 17:36 Ur Phencyclidine Scrn Negative ng/mL (Negative) 03/24/24 17:36 Ur Amphetamines Screen Negative ng/mL (Negative) 03/24/24 17:36 U Benzodiazepines Scrn Negative ng/mL (Negative) 03/24/24 17:36 Urine Cocaine Screen Negative ng/mL (Negative) 03/24/24 17:36 U Marijuana (THC) Screen Negative ng/mL (Negative) 03/24/24 17:36 Ethyl Alcohol < 10 mg/dL (0-10) 03/24/24 20:06 No radiology studies performed this visit Discharge Plan Discharge Patient Disposition: Admitted As Inpatient Clinical Impression: Suicidal ideation, Self-harming behavior Condition: Stable Prescriptions: No Action sertraline [Zoloft] 100 mg tablet 100 mg PO DAILY@0800 (DME) lancets [OneTouch Delica Plus Lancet] 33 gauge misc See Rx Instructions .ROUTE .MEDSUPPLY Qty: 100 0RF Rx Instructions: daily (DME) blood-glucose meter [OneTouch Ultra2 Meter] Kit See Rx Instructions .ROUTE .MEDSUPPLY Qty: 1 0RF Rx Instructions: daily acetaminophen 325 mg capsule 325 mg PO Q4H PRN (Reason: fever or pain) Qty: 30 5RF Cepacol Sore Throat (neftali-men) 15-3.6 mg lozenge 1 jose maria mucous membrane Q2H PRN (Reason: sore throat) Qty: 16 5RF Dimetapp DM Cold-Cough (PE) 1-2.5-5 mg/5 mL solution 5 ml PO Q4H PRN (Reason: cough and congestion) Qty: 118 5RF calcium carbonate [Tums] 200 mg calcium (500 mg) tablet,chewable 200 mg PO TID PRN (Reason: dyspepsia) Qty: 30 5RF ibuprofen [IBU-200] 200 mg tablet 200 mg PO Q6H PRN (Reason: fever/pain) Qty: 30 2RF azelastine 137 mcg (0.1 %) aerosol,spray 2 spray intranasal .at bedtime Qty: 30 2RF Rx Instructions: administer into each nostril calcium carbonate-vitamin D3 [Os-Usman 500 + D3] 500 mg-15 mcg (600 unit) tablet 1 tab PO .2 times day Qty: 60 5RF fluticasone propionate [Flonase Allergy Relief] 50 mcg/actuation spray,suspension 1 spray intranasal DAILY Qty: 16 5RF Rx Instructions: administer into each nostril semaglutide 0.25 mg or 0.5 mg(2 mg/1.5 mL) pen injector 0.25 mg SUBCUT Q7D Qty: 1.5 5RF Rx Instructions: take on Wednesday (DME) pen needle, diabetic 33 gauge x needle See Rx Instructions .ROUTE .MEDSUPPLY Qty: 100 5RF Rx Instructions: 1 time week Senna Plus 8.6-50 mg capsule 1 tab-cap PO .at bedtime Qty: 30 5RF Hold Instructions: Doctor's Order [id number]-nmwkcxgty-GV 3.5-10,000-1 mg/mL-unit/mL-% drops,suspension 4 drp otic (ear) TID 10 Days Qty: 10 0RF Rx Instructions: right ear medroxyprogesterone 150 mg/mL syringe 150 mg IM .every 12 weeks Qty: 1 3RF (DME) diabetic shoes with 3 inserts See Rx Instructions .Route .MEDSUPPLY Qty: 1 0RF Rx Instructions: As directed to the shoe shashi multivitamin [Daily Multi-Vitamin] Tablet 1 tab PO QAM Qty: 30 5RF cetirizine [Zyrtec] 10 mg tablet 10 mg PO .at bedtime Qty: 30 5RF (DME) blood sugar diagnostic Strip See Rx Instructions .ROUTE .MEDSUPPLY Qty: 50 5RF Rx Instructions: one daily risperidone 4 mg tablet 2 mg PO TID@08,15,20 divalproex 500 mg tablet extended release 24 hr 1,000 mg PO BEDTIME@2000 divalproex 250 mg tablet extended release 24 hr 250 mg PO BID@0800,1400 ketorolac 10 mg tablet 10 mg PO TID PRN (Reason: pain) Qty: 10 0RF Referrals: Ying Li, DICTATING TRANSCRIBING MACHINE SERVICER-C [Primary Care Provider] - Coding Level of Care Code ED Data Integrity Specialist for Amanda Olivas
[2024-03-24 17:53] LABS: Add Urine Microscopic? YES; Bilirubin Urine Neg (Negative); Blood Urine Neg (Negative); Glucose Urine UA Norm (Normal); Ketones Urine Negative (Negative); Leukocyte Esterase Urine 1+ (Negative); Nitrate Urine Negative (Negative); Protein Urine Neg (Negative); Urine Appearance Clear (CLEAR); Urine Color Yellow (Yellow); Urobilinogen Urine Neg (Negative); pH Urine 6 (5-7)
[2024-03-24 17:54] LABS: Add Urine Culture? No; Bacteria Urine TRACE /hpf; Mucus Urine TRACE /hpf; RBC Urine RARE /hpf (0-2); Squamous Epithelial Cell Urine 0-4 /hpf (0-5); WBC Urine 0-4 /hpf (0-5)
[2024-03-24 17:55] LABS: Amphetamines Screen Urine Negative (Negative); Barbiturates Screen Urine Negative (Negative); Benzodiazepines Screen Urine Negative (Negative); Cocaine Screen Urine Negative (Negative); Opiate Screen Urine Negative (Negative); PCP Screen Urine Negative (Negative); THC Screen Urine Negative (Negative)
[2024-03-24 20:13] LABS: Basophils % 0.4 %; Eosinophils # 0.2 10^3/uL (0.0-0.8); Hematocrit 43.1 % (36-47); Lymphocytes # 3.3 10^3/uL (0.8-4.8); Lymphocytes % 48.1 %; Mean Corpuscular HGB Conc 34.6 g/dL (30-55); Mean Corpuscular Hemoglobin 33.9 pg (27-33); Mean Corpuscular Volume 98.2 fl (85-98); Mean Platelet Volume 9.4 fL (7.4-10.4); Monocytes # 0.4 10^3/uL (0.2-0.9); Monocytes % 5.8 %; Neutrophils # 2.95 10^3/uL (1.8-7.7); Neutrophils % 42.4 %; Nucleated Red Blood Cells % 0 %; Platelet Count 124 10^3/cmm (157-399); Red Blood Count 4.39 10^6/uL (3.85-5.65); White Blood Count 6.95 10^3/uL (3.29-11.43)
[2024-03-24 20:24] LABS: HCG, Serum Qual Negative (Negative)
[2024-03-24 20:31] LABS: Alanine Aminotransferase 19 U/L (0-33); Albumin Level 4.5 g/dL (3.5-5.2); Alkaline Phosphatase 49 U/L (35-105); Anion Gap 10.8 (5-19); Aspartate Amino Transferase 21 U/L (0-32); Blood Urea Nitrogen 11 mg/dL (6-20); Calcium 8.9 mg/dL (8.5-10.5); Carbon Dioxide 27 mmol/L (22-29); Chloride 107 mmol/L (98-107); Creatinine Clr Calc Pharmacy 119.4161; Globulin 2.8 g/dL (1.3-4.6); Glomerular Filtration Rate 94.2 mL/min (90-130); Glucose 158 mg/dL (65-115); Osmolality Calculated 295 mOsm/kg (285-295); Potassium 3.8 mmol/L (3.5-5.1); Sodium 141 mmol/L (136-145); Total Bilirubin 0.3 mg/dL (0.15-1.2); Total Protein 7.3 g/dL (6.6-8.7)
[2024-03-24 20:33] LABS: Acetaminophen < 5.0 ug/mL (10-30); Alcohol Level < 10 mg/dL (0-10); Salicylate < 0.3 mg/dL (3-10)
[2024-03-24 20:57] VITALS: BP 107/78; PULSE 79; RESP 18; TEMP 36.3; O2SAT 95
[2024-03-24 21:00] VITALS: BP 117/80; PULSE 81; RESP 17; TEMP 36.9; O2SAT 97
[2024-03-24 21:27] VITALS: BP 107/78; PULSE 79; RESP 18; TEMP 36.3; O2SAT 95
[2024-03-24] MEDS: trazodone 50 mg Tablet PO (22:23)
[2024-03-24] MEDS: hyDROXYzine 25 mg Capsule 50 MG PO (22:23)
[2024-03-25 06:00] VITALS: BP 105/74; PULSE 84; RESP 16; TEMP 36.5; O2SAT 99
[2024-03-25] MEDS: hyDROXYzine 25 mg Capsule 50 MG PO (06:13)
[2024-03-25 07:53] LABS: Glucose Point of Care 110 mg/dL (70-110)
--- NOTE | 2024-03-25 08:02 | PC.NURSE ---
During morning shift assessment, patient stated that she wants to go home. Patient reports anxious, but states that she doesn't know why she is anxious. Patient denies depression/sadness, SI, HI, AVH. Patient sitting in dayroom, watching TV.
--- NOTE | 2024-03-25 08:15 | P.NPUHP_ITS ---
Providers/Chief Complaint 2 Admitting Physician: Eber Proctor MD Primary Care Provider: DIMA Pop Chief Complaint: SI HPI NPU History of Present Illness Joellen Blair is a 38 year old female who presented to the emergency department with the following report: Chief Complaint: Psychiatric Symptoms Stated Complaint: SI Time Seen by Provider: 03/24/24 15:48 Source: patient and other (care staff) Mode of arrival: ambulatory Limitations: no limitations History of Present Illness: Patient is a 38-year-old female who presents along with her care staff from her IS for concerns of self harming behaviors, suicidal statements, and other dangerous behaviors. Care staff states yesterday after day rehab, [place] Care staff states today she took a pair of scissors and a pizza slicer and held it to her arms/wrists and attempted to cut herself in a reported suicide attempt. Patient states she feels very depressed and misses her mother. Care staff is worried that they are not able to keep patient safe at home with her current behaviors and is requesting hospitalization. MD complaint: suicidal ideation, feels depressed and other (dangerous behaviors) Onset (ago): day(s) History of same: Yes Relieving factors: none Exacerbating factors: none Associated psychiatric symptoms: depression and suicidal ideation Associated symptoms: Reports depression and suicidal ideation; Deny auditory hallucinations, visual hallucinations or homicidal ideation Treatments prior to arrival: none If self harm: admits thoughts of self harm and has acted on plan. She was admitted to the neuropsychiatric unit for definitive treatment of those issues. She is a poor historian but we got some information from her staff and some documentation from the facility. From what we understand she has been in this IS for many years and then this level of treatment for years. Reportedly 18 years ago or so she became in need of additional assistance after the of her primary caregiver. She has done fairly well in these residential settings and the only challenge reported was that her platelets were low in January and it was decided that they were going to decrease her Depakote from 1750 mg daily of the ER to 1250 mg back in January. And over the last 6 weeks she has had increased emotionality, increased in lability, reports of depression and suicidal thoughts. There was an active furtherance with her putting a pizza cutter up to her neck at 1 point and she left her day program and walked on a busy road recently leading to a request for evaluation for safety. Patient has a long history of mental health/psychiatric services and has an outpatient psychiatrist. She has 24-hour care and ISL with 2 roommates. Otherwise she has been in this condition for her adult life. She has been managed without hospitalization since around the time of the of her caregiver. Outside of this recent change in her medication there have been no other significant changes in her life per staff and they are requesting an evaluation of her medication. They made attempts to get a hold of her outpatient provider without success to consider changes so they brought her to the emergency department. Meds NPU Home Medications Medication Instructions Recorded Confirmed Last Taken Type sertraline 100 mg tablet (Zoloft) 100 mg PO DAILY@0800 12/27/19 03/24/24 03/12/21 History blood-glucose meter (OneTouch #1 ea 07/08/20 03/24/24 Unknown Rx Ultra2 Meter kit) lancets 33 gauge (OneTouch Delica #100 ea 07/08/20 03/24/24 Unknown Rx Plus Lancet) divalproex 250 mg tablet,extended 250 mg PO BID@0800,1400 03/12/21 03/24/24 03/12/21 History release 24 hr divalproex 500 mg tablet,extended 1,000 mg PO BEDTIME@2000 03/12/21 03/24/24 03/11/21 History release 24 hr risperidone 4 mg tablet 2 mg PO TID@08,15,20 03/12/21 03/24/24 03/12/21 History acetaminophen 325 mg capsule 325 mg PO Q4H PRN fever or pain 04/12/23 03/24/24 Unknown Rx #30 caps benzocaine 15 mg-menthol 3.6 mg 1 jose maria mucous membrane Q2H PRN sore 04/12/23 03/24/24 Unknown Rx lozenges (Cepacol Sore Throat throat #16 ea (benzocaine-menthol)) hxcwvdnbqqpbbud-[id number]-EK 1 5 ml PO Q4H PRN cough and 04/12/23 03/24/24 Unknown Rx mg-2.5 mg-5 mg/5 mL oral solution congestion #118 mL (Dimetapp DM Cold-Cough (PE)) calcium carbonate (Tums) 200 mg PO TID PRN dyspepsia #30 04/12/23 03/24/24 Unknown Rx tabs ibuprofen 200 mg tablet (IBU-200) 200 mg PO Q6H PRN fever/pain #30 04/12/23 03/24/24 Unknown Rx tabs blood sugar diagnostic #50 ea 09/06/23 03/24/24 Unknown Rx medroxyprogesterone 150 mg/mL 150 mg IM .every 12 weeks #1 mL 10/13/23 03/24/24 Unknown Rx intramuscular syringe diabetic shoes with 3 inserts #1 ea 10/21/23 03/24/24 Unknown Rx azelastine 137 mcg (0.1 %) nasal 2 spray intranasal .at bedtime #30 11/29/23 03/24/24 Unknown Rx spray aerosol mL calcium carbonate 500 mg-vitamin 1 tab PO .2 times day #60 tabs 11/29/23 03/25/24 Unknown Rx D3 15 mcg (600 unit) tablet (Os-Usman 500 + D3) fluticasone propionate 50 1 spray intranasal DAILY #16 grams 11/29/23 03/24/24 Unknown Rx mcg/actuation nasal spray,suspension (Flonase Allergy Relief) [id number]-[id number] 3.5 4 drp otic (ear) TID 10 days #10 mL 11/29/23 03/24/24 Unknown Rx mg-10,000 unit/mL-1 % ear drops,susp pen needle, diabetic 33 gauge x #100 ea 11/29/23 03/24/24 Unknown Rx 5/32 semaglutide 0.25 mg or 0.5 mg (2 0.25 mg (0.187 mL) SUBCUT Q7D #1.5 11/29/23 03/24/24 Unknown Rx mg/1.5 mL) subcutaneous pen mL injector sennosides 8.6 mg-docusate sodium 1 tab-cap PO .at bedtime 11/29/23 03/24/24 Unknown Rx 50 mg capsule (Senna Plus) constipation #30 caps ketorolac 10 mg tablet 10 mg PO TID PRN pain #10 tabs 12/25/23 03/24/24 Unknown Rx cetirizine 10 mg tablet (Zyrtec) 10 mg PO .at bedtime #30 tabs 02/10/24 03/24/24 Unknown Rx multivitamin (Daily Multi-Vitamin 1 tab PO QAM #30 tabs 02/10/24 03/24/24 Unknown Rx tablet) Allergies Allergy/AdvReac Type Severity Reaction Status Date / Time cephalexin [From Keflex] Allergy Intermediate Rash Verified 03/24/24 10:15 Penicillins Allergy Hives Verified 03/24/24 10:15 PFSH NPU 2 PFSH: Medical History Obesity, Class I, BMI 30-34.9 Depo-Provera contraceptive status Acid reflux Environmental and seasonal allergies Mental and behavioral problem Surgical History History of venomous spider bite Left leg brown History of cholecystectomy 06/05/13 Family History Mother Diabetes Grandmother Diabetes Social History Smoking and tobacco/nicotine status: never used tobacco/nicotine Second hand smoke exposure: No Alcohol intake: never Substance/Drug Use: never Adopted: No Caregiver/support person: Yes Lives independently: No Household members: caregiver Housing: House Marital status: Single Number of children: 0 service: No Current occupational status: disabled Current occupational exposures/hazards: No Pets and animals: No Sexually active: No Do you think of yourself as: Straight/Heterosexual Current gender identity: Female Special nikos needs: No Mental Status Exam 2 MSE Comments: This is an obese white female in a hospital scrubs with limited grooming and eye contact. No abnormal movements except for psychomotor retardation followed by agitation when told she will not be discharged today. Mostly with exam in moderate distress. Speech was mostly normal rate and volume but childlike. Mood described as sad but ready to go home, affect labile and tearful. Thought process linear. Thought content: Patient denied suicidal or homicidal ideation, there were no delusions reported or noted but it is unclear that she really understands what a delusion is. No reports of auditory or visual hallucinations but limited intellect to appreciate what that fully means. Attention and concentration were limited and memory was poor but none were formally tested. She was alert and appeared to be oriented to self and place insight, judgment and impulse control were impaired. Intellectual ability was impaired. Vitals/I&O/Wt Last Vital Signs Temp 97.7 F 03/25/24 06:00 Pulse 84 03/25/24 06:00 Resp 16 03/25/24 06:00 BP 105/74 03/25/24 06:00 Pulse Ox 99 03/25/24 06:00 O2 Del Method Room Air 03/24/24 21:00 Weight last 48 hrs Weight 89.811 kg Data NPU 03/24/24 20:06 03/24/24 20:06 A&P Assessment and plan (1) Suicidal ideation: (2) Self-harming behavior: (3) Moderate intellectual disability: (4) Type 2 diabetes mellitus: (5) Obesity, Class I, BMI 30-34.9: (6) Intermittent explosive disorder: (7) History of psychosis: Plan Patient is a 38-year-old white female with significant history of mental health/psychiatric services with mild to moderate intellectual disability on the moderate side who has lived in an IS for many years with recent behavioral decompensation after a decrease in her Depakote level that was done secondary to low platelets. 1. Continue current medication. Will need to get some better information on the timeline of her Depakote use. Lab work going back to 2021 shows this a low platelet count. So it is unclear if Depakote is playing a role or there is another explanation for this thrombocytopenia. 2. Encourage individual, group and milieu therapy. 3. Continue every 15 minute checks for safety. 4. Will attempt to get collateral information. Involuntary Hold Information 2 96 Hour Hold: 96 Hour Involuntary Admission: No Attestations NPU 2 Medical Necessity Statement*: Inpatient psychiatric hospitalization is medically necessary and the clinically appropriate intervention at this time. We will monitor medications and make changes as indicated. She will be in the hospital for over 2 midnights. Patient's likely length of stay is 4-6 days. Coding Level of Care Code Acute Code for Chg Fwd Diagnoses Suicidal ideation R45.851 Self-harming behavior Moderate intellectual disability F71 Type 2 diabetes mellitus E11.9 Obesity, Class I, BMI 30-34.9 E66.9 Intermittent explosive disorder F63.81 History of psychosis Z86.59
[2024-03-25] MEDS: OLANZapine 5 mg ODT PO ×3 (08:25→21:04)
--- NOTE | 2024-03-25 08:26 | PC.NURSE ---
Patient anxious, unable to give a reason for her anxiety. Administered zy[rexa 5mg ODT. Patient states that she is eager to leave and return to her home
--- NOTE | 2024-03-25 11:09 | PC.NURSE ---
This nurse talked with patient's sponser Deisy. This nurse verified that patient currently takes depakote 500mg at HS and depakote 250mg TID. Patient's last ozempic injection was on Wednesday, March 20. Patient receives this injection each Wednesday.
[2024-03-25] MEDS: sertraline 100 mg Tablet PO (11:38)
[2024-03-25] MEDS: fluticasone nasal spray 16gm Btl 1 SPRAY INTRANASAL (11:38)
[2024-03-25 12:13] LABS: Glucose Point of Care 138 mg/dL (70-110)
[2024-03-25] MEDS: haloperidol 5 mg Tablet PO (12:17)
[2024-03-25 14:00] VITALS: BP 103/78; PULSE 88; RESP 16; TEMP 36.6; O2SAT 98
[2024-03-25] MEDS: PERPHENAZINE 4 MG 1 EACH PO ×2 (14:04→21:05)
[2024-03-25] MEDS: risperiDONE 2 mg Tablet PO ×2 (14:04→21:04)
--- NOTE | 2024-03-25 14:45 | PC.NURSE ---
This nurse stopped accuchecks for patient, per Dr. Proctor, as patient receives ozempic once per week, on Mondays.
[2024-03-25] MEDS: sertraline 50 mg Tablet PO (15:49)
[2024-03-25] MEDS: calcium carb-vit d 600mg/400unit 1 Tablet 1 EACH PO (18:09)
[2024-03-25 19:48] VITALS: RESP 16
[2024-03-25] MEDS: cetirizine 10 mg Tablet PO (21:04)
[2024-03-25] MEDS: trazodone 50 mg Tablet PO (21:04)
[2024-03-26 06:00] VITALS: BP 96/67; PULSE 87; RESP 18; TEMP 36.7; O2SAT 98
[2024-03-26] MEDS: sertraline 100 mg Tablet 150 MG PO (07:16)
[2024-03-26] MEDS: calcium carb-vit d 600mg/400unit 1 Tablet 1 EACH PO ×2 (07:16→17:53)
[2024-03-26] MEDS: risperiDONE 2 mg Tablet PO ×3 (07:16→20:11)
[2024-03-26] MEDS: fluticasone nasal spray 16gm Btl 1 SPRAY INTRANASAL (07:17)
[2024-03-26] MEDS: acetaminophen 325 mg Tablet 650 MG PO ×2 (07:17→20:12)
[2024-03-26] MEDS: PERPHENAZINE 4 MG 1 EACH PO ×3 (07:19→20:23)
[2024-03-26] MEDS: ibuprofen 600 mg Tablet PO (10:26)
[2024-03-26 14:00] VITALS: BP 109/78; PULSE 75; RESP 16; TEMP 36.4; O2SAT 99
--- NOTE | 2024-03-26 17:28 | P.NPUPN_ITS ---
Subjective NPU 2 Subjective: 38-year-old white female with a history of mild cognitive impairment currently residing in an ISL admitted with significant 6 suicidal statements and thoughts of self-harm [place]. The patient continued to lament wanting to return back to the ISL. She had minimal input regarding her medication and stated that she wanted to go home today. She did not appear to acknowledge having engaged in any dangerous behaviors at her ISL despite significant supportive evidence by the ISL itself. Patient was informed that the IS was not ready to take her back today. Mental Status Exam 2 MSE Comments: This is an obese white female in a hospital scrubs with limited grooming and eye contact. No abnormal movements except for psychomotor retardation. She was minimally compliant with exam in moderate distress. Speech was mostly normal rate and volume but childlike. Mood described ok affect was weepy. Thought process was linear but superficial Thought content: Patient denied suicidal or homicidal ideation, there were no delusions appreciated. She did not appear to be responding to internal stimuli. No reports of auditory or visual hallucinations were appreciated. Her intelligence was commensurate to that of mild cognitive impairment. Attention and concentration were limited and memory was poor but none were formally tested. She was alert and appeared to be oriented to self and place only. Her insight was minimal. Her judgment and impulse control were impaired. Vitals/I&O/Wt Last Vital Signs Temp 97.6 F 03/26/24 14:00 Pulse 75 03/26/24 14:00 Resp 16 03/26/24 14:00 BP 109/78 03/26/24 14:00 Pulse Ox 99 03/26/24 14:00 O2 Del Method Room Air 03/26/24 06:00 Weight last 48 hrs Weight 92.193 kg Data NPU 03/24/24 20:06 03/24/24 20:06 A&P Assessment and plan (1) Suicidal ideation: (2) Self-harming behavior: (3) Moderate intellectual disability: (4) Type 2 diabetes mellitus: (5) Obesity, Class I, BMI 30-34.9: (6) Intermittent explosive disorder: (7) History of psychosis: Plan Patient is a 38-year-old white female with significant history of mental health/psychiatric services with mild to moderate intellectual disability on the moderate side who has lived in an IS for many years with recent behavioral decompensation after a decrease in her Depakote level that was done secondary to low platelets. 1. Continue current medication. Will need to get some better information on the timeline of her Depakote use. Lab work going back to 2021 shows this a low platelet count. So it is unclear if Depakote is playing a role or there is another explanation for this thrombocytopenia. 2. Encourage individual, group and milieu therapy. 3. Continue every 15 minute checks for safety. 4. Will attempt to get collateral information. Continue zoloft, risperidal and depakote as prescribed. Involuntary Hold Information 2 96 Hour Hold: 96 Hour Involuntary Admission: No Attestations NPU 2 Medical Necessity Statement*: Inpatient psychiatric hospitalization is medically necessary and the clinically appropriate intervention at this time. We will monitor medications and make changes as indicated. Patient's likely length of stay is 4-6 days. Coding Level of Care Code Acute Code for g Fwd Diagnoses Suicidal ideation R45.851 Self-harming behavior Moderate intellectual disability F71 Type 2 diabetes mellitus E11.9 Obesity, Class I, BMI 30-34.9 E66.9 Intermittent explosive disorder F63.81 History of psychosis Z86.59
[2024-03-26] MEDS: trazodone 50 mg Tablet PO (20:11)
[2024-03-26] MEDS: cetirizine 10 mg Tablet PO (20:11)
[2024-03-26 20:42] VITALS: BP 103/71; PULSE 95; RESP 18; TEMP 36.9; O2SAT 98
[2024-03-27 06:00] VITALS: BP 93/65; PULSE 87; RESP 16; TEMP 36.6; O2SAT 100
[2024-03-27 07:50] LABS: Glucose Point of Care 123 mg/dL (70-110)
[2024-03-27] MEDS: sertraline 100 mg Tablet 150 MG PO (09:26)
[2024-03-27] MEDS: calcium carb-vit d 600mg/400unit 1 Tablet 1 EACH PO (09:26)
[2024-03-27] MEDS: fluticasone nasal spray 16gm Btl 1 SPRAY INTRANASAL (09:27)
[2024-03-27] MEDS: risperiDONE 2 mg Tablet PO ×2 (09:27→14:54)
[2024-03-27] MEDS: PERPHENAZINE 4 MG 1 EACH PO ×2 (09:28→14:53)
--- NOTE | 2024-03-27 12:06 | DCPLANNER ---
IMM completed 03/27/24 @ 12:05pm on the phone with (manager data warehouse), Christina. Christina was given a copy of rights when she picked up pt.
--- NOTE | 2024-03-27 12:14 | W.PM.NPUDCS ---
Diagnoses at Discharge Discharge Diagnosis (1) Suicidal ideation: Status: Acute (2) Self-harming behavior: Status: Acute (3) Moderate intellectual disability: Status: Acute (4) Type 2 diabetes mellitus: Status: Acute (5) Obesity, Class I, BMI 30-34.9: Status: Chronic (6) Intermittent explosive disorder: Status: Acute (7) History of psychosis: Status: Acute Reason for Visit Reason for Visit: SI Brief History: History of Present Illness Joellen Blair is a 38 year old female who presented to the emergency department with the following report: Chief Complaint: Psychiatric Symptoms Stated Complaint: SI Time Seen by Provider: 03/24/24 15:48 Source: patient and other (care staff) Mode of arrival: ambulatory Limitations: no limitations History of Present Illness: Patient is a 38-year-old female who presents along with her care staff from her IS for concerns of self harming behaviors, suicidal statements, and other dangerous behaviors. Care staff states yesterday after day rehab, [place] Care staff states today she took a pair of scissors and a pizza slicer and held it to her arms/wrists and attempted to cut herself in a reported suicide attempt. Patient states she feels very depressed and misses her mother. Care staff is worried that they are not able to keep patient safe at home with her current behaviors and is requesting hospitalization. MD complaint: suicidal ideation, feels depressed and other (dangerous behaviors) Onset (ago): day(s) History of same: Yes Relieving factors: none Exacerbating factors: none Associated psychiatric symptoms: depression and suicidal ideation Associated symptoms: Reports depression and suicidal ideation; Deny auditory hallucinations, visual hallucinations or homicidal ideation Treatments prior to arrival: none If self harm: admits thoughts of self harm and has acted on plan. She was admitted to the neuropsychiatric unit for definitive treatment of those issues. She is a poor historian but we got some information from her staff and some documentation from the facility. From what we understand she has been in this IS for many years and then this level of treatment for years. Reportedly 18 years ago or so she became in need of additional assistance after the of her primary caregiver. She has done fairly well in these residential settings and the only challenge reported was that her platelets were low in January and it was decided that they were going to decrease her Depakote from 1750 mg daily of the ER to 1250 mg back in January. And over the last 6 weeks she has had increased emotionality, increased in lability, reports of depression and suicidal thoughts. There was an active furtherance with her putting a pizza cutter up to her neck at 1 point and she left her day program and walked on a busy road recently leading to a request for evaluation for safety. Patient has a long history of mental health/psychiatric services and has an outpatient psychiatrist. She has 24-hour care and ISL with 2 roommates. Otherwise she has been in this condition for her adult life. She has been managed without hospitalization since around the time of the of her caregiver. Outside of this recent change in her medication there have been no other significant changes in her life per staff and they are requesting an evaluation of her medication. They made attempts to get a hold of her outpatient provider without success to consider changes so they brought her to the emergency department. Hospital Course Hospital Course During the hospitalization, the patient had routine laboratory studies which were within normal limits except for a few outliers.? Additionally, there was a general medical evaluation which was also within normal limits and revealed no new acute processes. ?At the time of discharge, lethality was denied and psychosis was resolving.? Mood and anxiety were well managed.? The patient endorsed a plan to avoid all drugs of abuse and follow up with the aftercare recommendations of the treatment team.? The patient was evaluated and deemed to be absent credible lethality and had achieved the maximum benefit from an inpatient hospitalization, and so was discharged. ?No changes to her medication was made. She had no behavioral outbursts and was discharged back to her ISL with no immediate changes to medication other than changing her Depakote ER to once a day at 1250mg daily. Involuntary Hold Information 96 Hour Hold: 96 Hour Involuntary Admission: No Mental Status Exam MSE Comments: This is an obese white female in a hospital scrubs with limited grooming and eye contact. No abnormal movements except for psychomotor retardation. She was minimally compliant with exam in moderate distress. Speech was mostly normal rate and volume but childlike. Mood described ok affect was brighter. Thought process was linear but superficial Thought content: Patient denied suicidal or homicidal ideation, there were no delusions appreciated. She did not appear to be responding to internal stimuli. No reports of auditory or visual hallucinations were appreciated. Her intelligence was commensurate to that of moderate cognitive impairment. Attention and concentration were limited and memory was poor but none were formally tested. She was alert and appeared to be oriented to self and place only. Her insight was minimal. Her judgment is limited and impulse control was adequate. Discharge Data Studies Completed and Pending: Laboratory Results WBC 6.95 10^3/uL (3.2 9-11.43) 03/24/24 20:06 RBC 4.39 10^6/uL (3.8 5-5.65) 03/24/24 20:06 Hgb 14.90 g/dL (11.27 -16.99) 03/24/24 20:06 Hct 43.1 % (36-47) 03/24/24 20:06 MCV 98.2 fl (85-98) H 03/24/24 20:06 MCH 33.9 pg (27-33) H 03/24/24 20:06 MCHC 34.6 g/dL (30-55) 03/24/24 20:06 RDW 12.0 % (12.1-15.1 ) L 03/24/24 20:06 Plt Count 124 10^3/cmm (157 -399) L 03/24/24 20:06 MPV 9.4 fL (7.4-10.4) 03/24/24 20:06 Neut % (Auto) 42.4 % 03/24/24 20:06 Lymph % (Auto) 48.1 % 03/24/24 20:06 [place] % (Auto) 5.8 % 03/24/24 20:06 Eos % (Auto) 3.0 % 03/24/24 20:06 Baso % (Auto) 0.4 % 03/24/24 20:06 Neut # (Auto) 2.95 10^3/uL (1.8 -7.7) 03/24/24 20:06 Lymph # (Auto) 3.3 10^3/uL (0.8- 4.8) 03/24/24 20:06 [place] # (Auto) 0.4 10^3/uL (0.2- 0.9) 03/24/24 20:06 Eos # (Auto) 0.2 10^3/uL (0.0- 0.8) 03/24/24 20:06 Baso # (Auto) 0.0 10^3/uL (0.0- 0.1) 03/24/24 20:06 Nucleated RBC % (a uto) 0 % 03/24/24 20:06 Nucleated RBCs # 0.0 /100WBC 03/24/24 20:06 Sodium 141 mmol/L (136-1 45) 03/24/24 20:06 Potassium 3.8 mmol/L (3.5-5 .1) 03/24/24 20:06 Chloride 107 mmol/L (98-10 7) 03/24/24 20:06 Carbon Dioxide 27 mmol/L (22-29) 03/24/24 20:06 Anion Gap 10.8 (5-19) 03/24/24 20:06 BUN 11 mg/dL (6-20) 03/24/24 20:06 Creatinine 0.7 mg/dL (0.5-0. 9) 03/24/24 20:06 GFR Calculation 94.2 mL/min (90-1 30) 03/24/24 20:06 Glucose 158 mg/dL (65-115 ) H 03/24/24 20:06 POC Glucose 123 mg/dL (70-110 ) H 03/27/24 07:42 Calculated Osmolal ity 295 mOsm/kg (285- 295) 03/24/24 20:06 Calcium 8.9 mg/dL (8.5-10 .5) 03/24/24 20:06 Total Bilirubin 0.3 mg/dL (0.15-1 .2) 03/24/24 20:06 AST 21 U/L (0-32) 03/24/24 20:06 ALT 19 U/L (0-33) 03/24/24 20:06 Alkaline Phosphata se 49 U/L (35-105) 03/24/24 20:06 Total Protein 7.3 g/dL (6.6-8.7 ) 03/24/24 20:06 Albumin 4.5 g/dL (3.5-5.2 ) 03/24/24 20:06 Globulin 2.8 g/dL (1.3-4.6 ) 03/24/24 20:06 HCG, Qual Negative (Negati ve) 03/24/24 20:06 Urine Color Yellow (Yellow) 03/24/24 17:36 Urine Appearance Clear (CLEAR) 03/24/24 17:36 Urine pH 6 (5-7) 03/24/24 17:36 Ur Specific Gravit y 1.010 (1.005-1.0 30) 03/24/24 17:36 Urine Protein Neg (Negative) 03/24/24 17:36 Urine Glucose (UA) Norm (Normal) 03/24/24 17:36 Urine Ketones Negative (Negati ve) 03/24/24 17:36 Urine Blood Neg (Negative) 03/24/24 17:36 Urine Nitrate Negative (Negati ve) 03/24/24 17:36 Urine Bilirubin Neg (Negative) 03/24/24 17:36 Urine Urobilinogen Neg mg/dL (Negati ve) 03/24/24 17:36 Ur Leukocyte Soco ase 1+ (Negative) H 03/24/24 17:36 Urine RBC Rare /hpf (0-2) 03/24/24 17:36 Urine WBC 0-4 /hpf (0-5) H 03/24/24 17:36 Ur Squamous Epith Cells 0-4 /hpf (0-5) H 03/24/24 17:36 Amorphous Sediment Not Reportable 03/24/24 17:36 Urine Bacteria Trace /hpf (NONE) 03/24/24 17:36 Urine Mucus Trace /hpf 03/24/24 17:36 Salicylates < 0.3 mg/dL (3-10 ) L 03/24/24 20:06 Urine Opiates Scre en Negative ng/mL (N egative) 03/24/24 17:36 Acetaminophen < 5.0 ug/mL (10-3 0) L 03/24/24 20:06 Ur Barbiturates Sc reen Negative ng/mL (N egative) 03/24/24 17:36 Ur Phencyclidine S crn Negative ng/mL (N egative) 03/24/24 17:36 Ur Amphetamines Sc reen Negative ng/mL (N egative) 03/24/24 17:36 U Benzodiazepines Scrn Negative ng/mL (N egative) 03/24/24 17:36 Urine Cocaine Scre en Negative ng/mL (N egative) 03/24/24 17:36 U Marijuana (THC) Screen Negative ng/mL (N egative) 03/24/24 17:36 Ethyl Alcohol < 10 mg/dL (0-10) 03/24/24 20:06 Vitals: Last Vital Signs Temp 97.9 F 03/27/24 06:00 Pulse 87 03/27/24 06:00 Resp 16 03/27/24 06:00 BP 93/65 03/27/24 06:00 Pulse Ox 100 03/27/24 06:00 O2 Del Method Room Air 03/26/24 20:42 Discharge Plan Discharge Patient Disposition: Home Condition: Stable Prescriptions: New divalproex 500 mg Tablet Extended Release 24 Hr 1,000 mg PO DAILY 30 Days Qty: 60 1RF divalproex 250 mg Tablet Extended Release 24 Hr 250 mg PO DAILY 30 Days Qty: 30 1RF Continued sertraline [Zoloft] 100 mg tablet 150 mg PO DAILY@0800 (DME) lancets [OneTouch Delica Plus Lancet] 33 gauge misc See Rx Instructions .ROUTE .MEDSUPPLY Qty: 100 0RF Rx Instructions: BEFORE BREAKFAST EVERY MON/WED/FRI (DME) blood-glucose meter [Muses Labsuch Ultra2 Meter] Kit See Rx Instructions .ROUTE .MEDSUPPLY Qty: 1 0RF Rx Instructions: BEFORE BREAKFAST EVERY MON/WED/FRI acetaminophen 325 mg capsule 325 mg PO Q4H PRN (Reason: fever or pain) Qty: 30 5RF Cepacol Sore Throat (neftali-men) 15-3.6 mg lozenge 1 jose maria mucous membrane Q2H PRN (Reason: sore throat) Qty: 16 5RF Dimetapp DM Cold-Cough (PE) 1-2.5-5 mg/5 mL solution 5 ml PO Q4H PRN (Reason: cough and congestion) Qty: 118 5RF calcium carbonate [Tums] 200 mg calcium (500 mg) tablet,chewable 200 mg PO TID PRN (Reason: dyspepsia) Qty: 30 5RF ibuprofen [IBU-200] 200 mg tablet 200 mg PO Q6H PRN (Reason: fever/pain) Qty: 30 2RF azelastine 137 mcg (0.1 %) aerosol,spray 2 spray intranasal .at bedtime Qty: 30 2RF Rx Instructions: administer into each nostril calcium carbonate-vitamin D3 [Os-Usman 500 + D3] 500 mg-15 mcg (600 unit) tablet 1 tab PO .2 times day Qty: 60 5RF fluticasone propionate [Flonase Allergy Relief] 50 mcg/actuation spray,suspension 1 spray intranasal DAILY Qty: 16 5RF Rx Instructions: administer into each nostril semaglutide 0.25 mg or 0.5 mg(2 mg/1.5 mL) pen injector 0.25 mg SUBCUT Q7D Qty: 1.5 5RF Rx Instructions: take on Wednesday (DME) pen needle, diabetic 33 gauge x / needle See Rx Instructions .ROUTE .MEDSUPPLY Qty: 100 5RF Rx Instructions: USE WITH OZEPIC PEN Senna Plus 8.6-50 mg capsule 1 tab-cap PO .at bedtime Qty: 30 5RF Hold Instructions: Doctor's Order medroxyprogesterone 150 mg/mL syringe 150 mg IM .every 12 weeks Qty: 1 3RF Rx Instructions: EVERY DEC/MARCH/JUN/SEP (DME) diabetic shoes with 3 inserts See Rx Instructions .Route .MEDSUPPLY Qty: 1 0RF Rx Instructions: As directed to the shoe gulinwood multivitamin [Daily Multi-Vitamin] Tablet 1 tab PO QAM Qty: 30 5RF cetirizine [Zyrtec] 10 mg tablet 10 mg PO .at bedtime Qty: 30 5RF (DME) blood sugar diagnostic Strip See Rx Instructions .ROUTE .MEDSUPPLY Qty: 50 5RF Rx Instructions: BEFORE BREAKFAST EVERY WED/WED/WED risperidone 4 mg tablet 2 mg PO TID perphenazine 4 mg Tablet 4 mg PO TID calcium carbonate 500 mg calcium (1,250 mg) Tablet,Chewable 500 mg PO TID PRN (Reason: Indigestion) Discontinued divalproex 500 mg tablet extended release 24 hr 500 mg PO BEDTIME@2000 divalproex 250 mg tablet extended release 24 hr 250 mg PO TID Discharge Orders: Discharge Order (Routine); Ordered 03/27/24 Ordered By: Declan Hicks Referrals: Ying Li, [employer]TING [employer]INTENANCE [employer]IC[employer] [Primary Care Provider] - Torsten Quezada MD [Referring] - Discharge Diet: Usual diet Discharge Activity: Resume usual activity Patient Instructions: Divalproex (By mouth) (Depakote, Depakote ER, Depakote Sprinkles), Help Prevent Suicide (DC), Suicide Prevention (DC), Opioid Safety Discharge Attestations NPU Time Spent in Discharge Care*: less than 30 min Specific Discharge Activities: Specific discharge activities: educating patient and documenting/other paperwork Coding Level of Care Code Acute Code for Chg Fwd Diagnoses Suicidal ideation R45.851 Self-harming behavior Moderate intellectual disability F71 Type 2 diabetes mellitus E11.9 Obesity, Class I, BMI 30-34.9 E66.9 Intermittent explosive disorder F63.81 History of psychosis Z86.59
--- NOTE | 2024-03-27 12:36 | PC.NURSE ---
ELAINA WYNN STAFF FROM [facility] CALLED AND SPOKE TO THIS RN REGARDING PTS MEDICATIONS AND CHANGED DOSES. RN EXPLAINED TO ELAINA THAT THE ONLY MEDICATIONS THAT HAVE BEEN CHANGED IS THE DEPAKOTE ER AND IT HAS BEEN CHANGED TO TAKE ONCE A DAY. NEW ORDERS WERE PLACED BY DR. W[place] TO GIVE DEPAKOTE ER 1250 MG NOW AND THEN TO CONTINUE THE DEPAKOTE ER 1250 MG PO DAILY EVERYDAY IN THE AM. EDUCATION WAS PROVIDED FOR THE MED CHANGE, ALL QUESTIONS WERE ANSWERED AND SUPPORT WAS VOICED. RN CALLED [phone] TO SPEAK TO ELAINA DIRECTED. PT WILL BE READY FOR DISCHARGE AND MEDICATION WILL BE SENT TO [facility] REQUESTED BY [facility].
[2024-03-27] MEDS: divalproex ER 250 mg Tablet (24H) PO (13:13)
[2024-03-27] MEDS: divalproex ER 500 mg Tablet (24H) 1000 MG PO (13:13)
[2024-03-27 14:00] VITALS: BP 101/74; PULSE 88; RESP 16; TEMP 36.7; O2SAT 98
[2024-03-27 14:38] VITALS: BP 93/65; PULSE 87; RESP 16; TEMP 36.6; O2SAT 100
== END 2024-03-27 15:59 | disposition home or self-care (01) | DRG 883 ==
LOC: ER 20:39 → NP 20:50
PROVIDERS: Admitting Provider Psychiatry & Neurology Psychiatry; Emergency Provider Physician Assistant; PCP Nurse Practitioner; Visit Provider Psychiatry & Neurology Psychiatry
DX: R45.88 Nonsuicidal self-harm (principal); R45.851 Suicidal ideations; F71 Moderate intellectual disabilities; E66.9 Obesity, unspecified; Z68.34 Body mass index [BMI] 34.0-34.9, adult; F63.81 Intermittent explosive disorder
CPT/HCPCS: 11721; 36416; 80053; 80306; 80307; 81001; 82962; 84703; 85025; 97150; 97165; 99285

== ENCOUNTER → 2024-04-05 11:28 | Outpatient (BNVA) | payer MEDICARE, MEDICAID, SELFPAY | PROVIDERS: PCP Nurse Practitioner; Visit Provider Nurse Practitioner | DX: F63.81 Intermittent explosive disorder (principal); E11.9 Type 2 diabetes mellitus without complications; D69.6 Thrombocytopenia, unspecified | CPT/HCPCS: 80053; 80164; 83036; 85025 ==

== ENCOUNTER 2024-05-26 13:42 | Emergency (ER) | payer MEDICARE, MEDICAID, SELFPAY ==
[2024-05-26 14:12] LABS: Basophils % 0.3 %; Eosinophils # 0.1 10^3/uL (0.0-0.8); Eosinophils % 0.3 %; Hematocrit 43.1 % (36-47); Lymphocytes # 2.2 10^3/uL (0.8-4.8); Lymphocytes % 13.9 %; Mean Corpuscular HGB Conc 33.9 g/dL (30-55); Mean Corpuscular Hemoglobin 33.6 pg (27-33); Mean Corpuscular Volume 99.3 fl (85-98); Mean Platelet Volume 10.1 fL (7.4-10.4); Monocytes # 1.4 10^3/uL (0.2-0.9); Monocytes % 8.9 %; Neutrophils # 12.14 10^3/uL (1.8-7.7); Neutrophils % 76.2 %; Nucleated Red Blood Cells % 0 %; Platelet Count 108 10^3/cmm (157-399); Red Blood Count 4.34 10^6/uL (3.85-5.65); Red Cell Distribution Width 12.2 % (12.1-15.1); White Blood Count 15.92 10^3/uL (3.29-11.43)
[2024-05-26 14:22] LABS: HCG, Serum Qual Negative (Negative)
[2024-05-26 14:25] VITALS: BP 105/73; PULSE 111; RESP 16; TEMP 36.9; O2SAT 97
[2024-05-26 14:28] LABS: Alanine Aminotransferase 18 U/L (0-33); Albumin Level 3.7 g/dL (3.5-5.2); Alkaline Phosphatase 49 U/L (35-105); Anion Gap 17.9 (5-19); Aspartate Amino Transferase 18 U/L (0-32); Blood Urea Nitrogen 13 mg/dL (6-20); Calcium 8.6 mg/dL (8.5-10.5); Carbon Dioxide 23 mmol/L (22-29); Chloride 101 mmol/L (98-107); Globulin 2.9 g/dL (1.3-4.6); Glomerular Filtration Rate 94.2 mL/min (90-130); Glucose 150 mg/dL (65-115); Lipase 16 U/L (13-60); Osmolality Calculated 289 mOsm/kg (285-295); Potassium 3.9 mmol/L (3.5-5.1); Sodium 138 mmol/L (136-145); Total Bilirubin 0.6 mg/dL (0.15-1.2); Total Protein 6.6 g/dL (6.6-8.7)
--- NOTE | 2024-05-26 15:14 | CTR_ITS ---
PROCEDURE INFORMATION: Exam: CT Abdomen And Pelvis With Contrast Exam date and time: 05/26/2024 4:39 PM Age: 38 years old Clinical indication: Other: Hematochezia; Abdominal pain; Colic; Prior surgery; Surgery date: 6+ months; Surgery type: Gb; Additional info: Abd pain, bloodly stool TECHNIQUE: Imaging protocol: Computed tomography of the abdomen and pelvis with contrast. Radiation optimization: All CT scans at this facility use at least one of these dose optimization techniques: automated exposure control; mA and/or kV adjustment per patient size (includes targeted exams where dose is matched to clinical indication); or iterative reconstruction. Contrast material: OMNI 350; Contrast volume: 100 ml; Contrast route: INTRAVENOUS (IV); COMPARISON: CT kidney stone [id number] 12/25/2023 10:10 PM RADIATION DOSE METRICS: Total DLP (mGy-cm): 918.33 FINDINGS: Lungs: Lung bases are clear. No pleural effusion. Liver: Normal. No mass. Gallbladder and biliary ducts: The gallbladder has been resected. Pancreas: Normal. No ductal dilation. Spleen: Normal. No splenomegaly. Adrenal glands: Normal. No mass. Kidneys and ureters: Normal. No hydronephrosis. Stomach and bowel: There is severe segmental inflammation involving the rectum. The inflammation extends into the perirectal fat. I see no abscess, free air, free fluid or bowel distension. Appendix: No evidence of appendicitis. Intraperitoneal space: See Stomach and bowel finding. Vasculature: The mesenteric arteries are widely patent. Lymph nodes: Unremarkable. No enlarged lymph nodes. Urinary bladder: Unremarkable as visualized. Reproductive: Unremarkable as visualized. Bones/joints: Unremarkable. No acute fracture. Soft tissues: Unremarkable. CT/CT abdomen pelvis w con* [id number] IMPRESSION: Severe inflammation involving the rectal wall most consistent with infectious proctitis
[2024-05-26] MEDS: sodium chloride 0.9% 1,000 ML 999 ML IV (16:15)
[2024-05-26] MEDS: iohexol 350 mg/mL 500 mL Btl (per mL) IV (16:41)
[2024-05-26 17:13] LABS: C.Diff PCR (Lab) NEGATIVE (Negative)
--- NOTE | 2024-05-26 17:52 | W.ED.GIBLEED ---
HPI - GI Bleed General: Chief complaint: GI Bleed Stated complaint: diarrhea Time Seen by Provider: 05/26/24 15:44 Source: patient Mode of arrival: ambulatory Limitations: no limitations History of Present Illness: 38-year-old female who states that over the last few weeks she has been having some blood per rectum a lot of rectal pain especially with bowel movements. She had some slight diarrhea she denies any fevers denies any recent antibiotic use. Patient denies any worse improving factors. Associated symptoms: Denies abdominal pain, chills, fever(s), headache(s), nausea, rash or vomiting Review of Systems Const: Denies: fever(s), chills, body aches or change in appetite ENMT: Denies: throat pain or dental pain Card: Denies: chest pain Resp: Denies: dyspnea GI: Reports: diarrhea, rectal pain and hematochezia; Denies: abdominal pain, nausea or vomiting Musc: Denies: neck pain or back pain Skin/Breast: Denies: rash Neuro: Denies: headache(s) PFSH ED PFSH: Medical History Type 2 diabetes mellitus with hyperglycemia Obesity, Class I, BMI 30-34.9 Depo-Provera contraceptive status Acid reflux Environmental and seasonal allergies Mental and behavioral problem Surgical History History of venomous spider bite Left leg brown History of cholecystectomy 06/05/13 Family History Mother Diabetes Grandmother Diabetes Social History Smoking and tobacco/nicotine status: never used tobacco/nicotine Second hand smoke exposure: No Alcohol intake: never Substance/Drug Use: never Adopted: No Caregiver/support person: Yes Lives independently: No Household members: caregiver Housing: House Marital status: Single Number of children: 0 service: No Current occupational status: disabled Current occupational exposures/hazards: No Pets and animals: No Sexually active: No Do you think of yourself as: Straight/Heterosexual Current gender identity: Female Special nikos needs: No Physical Exam Const: COMMON NORMALS: no acute distress, patient oriented x3 and healthy appearing HENMT: COMMON NORMALS: normocephalic and atraumatic HEAD & SCALP: normocephalic and atraumatic Neck/C-Spine: COMMON NORMALS: full ROM and supple Chest: COMMONS NORMALS: normal inspection of the chest Resp: COMMON NORMALS: normal respiratory effort Cardio: COMMON NORMALS: regular rate, regular rhythm and No murmurs present (Cardio) RATE: regular rate RHYTHM: regular rhythm Extremity: COMMON NORMALS: normal to inspection and full ROM Neuro: COMMON NORMALS: patient oriented x3, moves all extremities and no focal motor deficits Psych: COMMON NORMALS: mental status grossly normal, Normal thought process present and cooperative THOUGHT PROCESS: Normal thought process present Skin: COMMON NORMALS: no rashes or lesions noted and no wounds GENERAL SKIN EXAM: no rashes or lesions noted Course Vital Signs: Vital signs: Vital Signs Temperature 98.4 F 05/26/24 14:25 Pulse Rate 111 H 05/26/24 14:25 Respiratory Rate 16 05/26/24 14:25 Blood Pressure 105/73 05/26/24 14:25 Pulse Oximetry 97 05/26/24 14:25 Oxygen Delivery Me thod Room Air 05/26/24 14:25 MDM - GI Bleed Medical Decision Making Patient presents here with likely proctitis her C. difficile was negative we will treat her with doxycycline we will get her follow-up with surgery she is return if worsening she understands agrees to plan. Medical Records I reviewed the patient's medical records. Lab Data 05/26/24 14:04 05/26/24 14:04 Radiology Impressions Abdomen/Pelvis CT 05/26/24 15:14 IMPRESSION: Severe inflammation involving the rectal wall most consistent with infectious proctitis Laboratory Results WBC 15.92 10^3/uL (3.29-11.43) H 05/26/24 14:04 RBC 4.34 10^6/uL (3.85-5.65) 05/26/24 14:04 Hgb 14.60 g/dL (11.27-16.99) 05/26/24 14:04 Hct 43.1 % (36-47) 05/26/24 14:04 MCV 99.3 fl (85-98) H 05/26/24 14:04 MCH 33.6 pg (27-33) H 05/26/24 14:04 MCHC 33.9 g/dL (30-55) 05/26/24 14:04 RDW 12.2 % (12.1-15.1) 05/26/24 14:04 Plt Count 108 10^3/cmm (157-399) L 05/26/24 14:04 MPV 10.1 fL (7.4-10.4) 05/26/24 14:04 Neut % (Auto) 76.2 % 05/26/24 14:04 Lymph % (Auto) 13.9 % 05/26/24 14:04 [place] % (Auto) 8.9 % 05/26/24 14:04 Eos % (Auto) 0.3 % 05/26/24 14:04 Baso % (Auto) 0.3 % 05/26/24 14:04 Neut # (Auto) 12.14 10^3/uL (1.8-7.7) H 05/26/24 14:04 Lymph # (Auto) 2.2 10^3/uL (0.8-4.8) 05/26/24 14:04 [place] # (Auto) 1.4 10^3/uL (0.2-0.9) H 05/26/24 14:04 Eos # (Auto) 0.1 10^3/uL (0.0-0.8) 05/26/24 14:04 Baso # (Auto) 0.0 10^3/uL (0.0-0.1) 05/26/24 14:04 Nucleated RBC % (auto) 0 % 05/26/24 14:04 Nucleated RBCs # 0.0 /100WBC 05/26/24 14:04 Sodium 138 mmol/L (136-145) 05/26/24 14:04 Potassium 3.9 mmol/L (3.5-5.1) 05/26/24 14:04 Chloride 101 mmol/L (98-107) 05/26/24 14:04 Carbon Dioxide 23 mmol/L (22-29) 05/26/24 14:04 Anion Gap 17.9 (5-19) 05/26/24 14:04 BUN 13 mg/dL (6-20) 05/26/24 14:04 Creatinine 0.7 mg/dL (0.5-0.9) 05/26/24 14:04 GFR Calculation 94.2 mL/min (90-130) 05/26/24 14:04 Glucose 150 mg/dL (65-115) H 05/26/24 14:04 Calculated Osmolality 289 mOsm/kg (285-295) 05/26/24 14:04 Calcium 8.6 mg/dL (8.5-10.5) 05/26/24 14:04 Total Bilirubin 0.6 mg/dL (0.15-1.2) 05/26/24 14:04 AST 18 U/L (0-32) 05/26/24 14:04 ALT 18 U/L (0-33) 05/26/24 14:04 Alkaline Phosphatase 49 U/L (35-105) 05/26/24 14:04 Total Protein 6.6 g/dL (6.6-8.7) 05/26/24 14:04 Albumin 3.7 g/dL (3.5-5.2) 05/26/24 14:04 Globulin 2.9 g/dL (1.3-4.6) 05/26/24 14:04 Lipase 16 U/L (13-60) 05/26/24 14:04 HCG, Qual Negative (Negative) 05/26/24 14:04 C. difficile (PCR) Negative (Negative) 05/26/24 16:16 Blood Type A Positive 05/26/24 14:04 Rho(D) Type Rh positive 05/26/24 14:04 Antibody Screen Negative 05/26/24 14:04 All radiology interpretation(s) finalized by discharge Discharge Plan Discharge Patient Disposition: Home Clinical Impression: Acute proctitis Condition: Stable Prescriptions: New doxycycline hyclate 100 mg tablet 100 mg PO BID 10 Days Qty: 20 0RF No Action sertraline [Zoloft] 100 mg tablet 150 mg PO DAILY@0800 (DME) blood-glucose meter [OneTouch Ultra2 Meter] Kit See Rx Instructions .ROUTE .MEDSUPPLY Qty: 1 0RF Rx Instructions: BEFORE BREAKFAST EVERY MON/WED/FRI acetaminophen 325 mg capsule 325 mg PO Q4H PRN (Reason: fever or pain) Qty: 30 5RF Cepacol Sore Throat (neftali-men) 15-3.6 mg lozenge 1 jose maria mucous membrane Q2H PRN (Reason: sore throat) Qty: 16 5RF Dimetapp DM Cold-Cough (PE) 1-2.5-5 mg/5 mL solution 5 ml PO Q4H PRN (Reason: cough and congestion) Qty: 118 5RF calcium carbonate [Tums] 200 mg calcium (500 mg) tablet,chewable 200 mg PO TID PRN (Reason: dyspepsia) Qty: 30 5RF ibuprofen [IBU-200] 200 mg tablet 200 mg PO Q6H PRN (Reason: fever/pain) Qty: 30 2RF azelastine 137 mcg (0.1 %) aerosol,spray 2 spray intranasal .at bedtime Qty: 30 2RF Rx Instructions: administer into each nostril calcium carbonate-vitamin D3 [Os-Usman 500 + D3] 500 mg-15 mcg (600 unit) tablet 1 tab PO .2 times day Qty: 60 5RF fluticasone propionate [Flonase Allergy Relief] 50 mcg/actuation spray,suspension 1 spray intranasal DAILY Qty: 16 5RF Rx Instructions: administer into each nostril semaglutide 0.25 mg or 0.5 mg(2 mg/1.5 mL) pen injector 0.25 mg SUBCUT Q7D Qty: 1.5 5RF Rx Instructions: take on Wednesday (DME) pen needle, diabetic 33 gauge x needle See Rx Instructions .ROUTE .MEDSUPPLY Qty: 100 5RF Rx Instructions: USE WITH OZEPIC PEN Senna Plus 8.6-50 mg capsule 1 tab-cap PO .at bedtime Qty: 30 5RF Hold Instructions: Doctor's Order medroxyprogesterone 150 mg/mL syringe 150 mg IM .every 12 weeks Qty: 1 3RF Rx Instructions: EVERY DEC/MARCH/JUN/SEP (DME) diabetic shoes with 3 inserts See Rx Instructions .Route .MEDSUPPLY Qty: 1 0RF Rx Instructions: As directed to the shoe [place] multivitamin [Daily Multi-Vitamin] Tablet 1 tab PO QAM Qty: 30 5RF cetirizine [Zyrtec] 10 mg tablet 10 mg PO .at bedtime Qty: 30 5RF divalproex 250 mg tablet extended release 24 hr 250 mg PO TID divalproex 500 mg tablet extended release 24 hr 500 mg PO .4 times day (DME) blood sugar diagnostic Strip See Rx Instructions .ROUTE .MEDSUPPLY Qty: 50 5RF Rx Instructions: BEFORE BREAKFAST EVERY MON/WED/FRI [id number] 3.5-10,000-1 mg/mL-unit/mL-% drops,suspension 4 drp otic (ear) .2 times day 7 Days Qty: 10 0RF Rx Instructions: for right ear ibuprofen 600 mg tablet 600 mg PO TID PRN (Reason: pain) Qty: 45 0RF (DME) lancets [OneTouch Delica Plus Lancet] 33 gauge misc See Rx Instructions .ROUTE .MEDSUPPLY Qty: 100 0RF Rx Instructions: BEFORE BREAKFAST EVERY MON/WED/FRI risperidone 4 mg tablet 2 mg PO TID perphenazine 4 mg Tablet 4 mg PO TID calcium carbonate 500 mg calcium (1,250 mg) Tablet,Chewable 500 mg PO TID PRN (Reason: Indigestion) Discharge Orders: Discharge ED (Routine); Ordered 05/26/24 Ordered By: Erik Mead Referrals: Jad Nowak MD [Physician] - 4-7 days Ying Li FNP-Ananth [Primary Care Provider] - 4-7 days Discharge Diet: Advance as tolerated Discharge Activity: Use walker/crutches as instructed Patient Instructions: Proctitis (ED) Coding Level of Care Code ED Consumer Lending Manager for Amanda Olivas
[2024-05-26 18:04] VITALS: BP 118/69; PULSE 93; RESP 14; O2SAT 98
--- NOTE | 2024-05-29 08:36 | DCPLANNER ---
Message sent to General surgery for follow up -
== END 2024-05-26 18:04 | disposition home or self-care (01) ==
PROVIDERS: Emergency Medicine; Emergency Provider Emergency Medicine; PCP Nurse Practitioner
DX: K62.89 Other specified diseases of anus and rectum (principal); E11.9 Type 2 diabetes mellitus without complications; E66.9 Obesity, unspecified; Z68.33 Body mass index [BMI] 33.0-33.9, adult; Z79.899 Other long term (current) drug therapy; Z90.49 Acquired absence of other specified parts of digestive tract
CPT/HCPCS: 36415; 74177; 80053; 82274; 83630; 83690; 84703; 85025; 86850; 86900; 87045; 87177; 87209; 87427; 87449; 87493; 99285; J7030; Q9967

== ENCOUNTER → 2024-06-05 10:15 | Outpatient (BNVA) | payer MEDICARE, MEDICAID, SELFPAY | PROVIDERS: PCP Nurse Practitioner; Visit Provider Podiatrist Foot & Ankle Surgery | DX: B35.1 Tinea unguium (principal); L84 Corns and callosities; G62.9 Polyneuropathy, unspecified; E11.42 Type 2 diabetes mellitus with diabetic polyneuropathy; K62.89 Other specified diseases of anus and rectum; K92.1 Melena; K21.9 Gastro-esophageal reflux disease without esophagitis | CPT/HCPCS: 11056; 11721; 99204 ==

== ENCOUNTER → 2024-06-06 09:39 | Outpatient (BNVA) | payer MEDICARE, MEDICAID, SELFPAY | PROVIDERS: PCP Nurse Practitioner; Visit Provider Nurse Practitioner | DX: E11.65 Type 2 diabetes mellitus with hyperglycemia (principal) | CPT/HCPCS: 85025 ==

== ENCOUNTER 2024-06-24 16:38 | Emergency (ER) | payer MEDICARE, MEDICAID, SELFPAY ==
[2024-06-24] VITALS (7 sets, daily range): BP systolic 100–119; BP diastolic 68–81; PULSE 66–76; RESP 15–17; TEMP 36.8; O2SAT 96–99; BMI 34.0
--- NOTE | 2024-06-24 17:16 | ED_ITS ---
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 For over a month she has had abdominal discomfort and pain she has seen surgery in consultation and is scheduled for endoscopy. She also is Dilaudid Ozempic. They brought her in today because she is complaining of diffuse muscle aches and pains throughout the body as well as abdominal pain and nausea. She has had couple episodes of vomiting and diarrhea no hematochezia melena hematemesis or coffee-ground emesis. Patient states it is painful to urinate. History assisted by the caregiver who is with the patient. Associated Symptoms: Reports diarrhea, dysuria, nausea and vomiting; Denies chills, fever(s), hematochezia, hematemesis and melena Review of Systems 2 Const: Denies: fever(s) or chills Card: Denies: chest pain Resp: Denies: dyspnea GI: Reports: abdominal pain, nausea, vomiting and diarrhea; Denies: hematemesis, hematochezia or melena : Reports: dysuria; Denies: urinary frequency or urinary urgency Musc: Denies: neck pain or back pain Skin/Breast: Denies: rash PFSH ED 2 PFSH: Medical History Type 2 diabetes mellitus with hyperglycemia Obesity, Class I, BMI 30-34.9 Depo-Provera contraceptive status Acid reflux Environmental and seasonal allergies Mental and behavioral problem Surgical History History of venomous spider bite Left leg brown History of cholecystectomy 06/05/13 Family History Mother Diabetes Grandmother Diabetes Social History Smoking and tobacco/nicotine status: never used tobacco/nicotine Second hand smoke exposure: No Alcohol intake: never Substance/Drug Use: never Adopted: No Caregiver/support person: Yes Lives independently: No Household members: caregiver Housing: House Marital status: Single Number of children: 0 service: No Current occupational status: disabled Current occupational exposures/hazards: No Pets and animals: No Sexually active: No Do you think of yourself as: Straight/Heterosexual Current gender identity: Female Special nikos needs: No Physical Exam 2 Const: GENERAL APPEARANCE: anxious ORIENTATION/CONSCIOUSNESS: Yes awake, Yes oriented to person, Yes oriented to place and Yes oriented to time HENMT: COMMON NORMALS: normocephalic, atraumatic and hearing grossly normal bilaterally HEAD & SCALP: normocephalic and atraumatic Resp: COMMON NORMALS: normal respiratory effort, No retractions, No use of accessory muscles and clear to auscultation bilaterally AUSCULTATION: clear to auscultation bilaterally Cardio: COMMON NORMALS: regular rate, regular rhythm and No murmurs present (Cardio) RATE: regular rate RHYTHM: regular rhythm GI: COMMON NORMALS: No hepatosplenomegaly present AUSCULTATION: Yes normoactive bowel sounds PALPATION: Yes Tenderness to palpation present (GI) (Diffuse tenderness difficult to get accurate exam), No Guarding due to palpation present (GI) and Yes No hepatosplenomegaly present Extremity: COMMON NORMALS: normal to inspection, capillary refill normal, no clubbing, cyanosis or edema, no calf tenderness and no pedal edema Neuro: SENSORIUM/ORIENTATION: Yes oriented to person, Yes oriented to place and Yes oriented to time Skin: COMMON NORMALS: no rashes or lesions noted GENERAL SKIN EXAM: no rashes or lesions noted Course 2 Vital Signs: Vital signs: Vital Signs Temperature 98.2 F 06/24/24 16:59 Pulse Rate 69 06/24/24 20:00 Respiratory Rate 15 06/24/24 19:11 Blood Pressure 100/68 06/24/24 20:00 Pulse Oximetry 97 06/24/24 20:00 Oxygen Delivery Me thod Room Air 06/24/24 20:00 MDM - Abdominal Pain Medical Decision Making Care signed out to Dr. Peña at change of shift. See final notes for diagnosis and disposition. Labs and imaging pending Patient with no significant abnormality noted on labs or imaging. No evidence of acute abdominal or surgical abdominal pathology is noted on CT. Do not have any etiology for patient's pain at this time. Discussed with staff member that maybe we should stop the Ozempic as this has been an ongoing chronic problem and patient has been on Ozempic for a while. That may or may not be causing the problem but at least it would be something to try until she is able to get in and see GI and have her endoscopies as planned. Lab Data 06/24/24 17:36 06/24/24 17:36 Labs/Radiology: Radiology Impressions Abdomen/Pelvis CT 06/24/24 17:25 IMPRESSION: No acute findings within the abdomen or pelvis. Laboratory Results WBC 6.03 10^3/uL (3.29-11.43) 06/24/24 17:36 RBC 4.00 10^6/uL (3.85-5.65) 06/24/24 17:36 Hgb 13.40 g/dL (11.27-16.99) 06/24/24 17:36 Hct 39.0 % (36-47) 06/24/24 17:36 MCV 97.5 fl (85-98) 06/24/24 17:36 MCH 33.5 pg (27-33) H 06/24/24 17:36 MCHC 34.4 g/dL (30-55) 06/24/24 17:36 RDW 12.6 % (12.1-15.1) 06/24/24 17:36 Plt Count 107 10^3/cmm (157-399) L 06/24/24 17:36 MPV 10.3 fL (7.4-10.4) 06/24/24 17:36 Neut % (Auto) 40.9 % 06/24/24 17:36 Lymph % (Auto) 45.9 % 06/24/24 17:36 [place] % (Auto) 7.5 % 06/24/24 17:36 Eos % (Auto) 5.0 % 06/24/24 17:36 Baso % (Auto) 0.5 % 06/24/24 17:36 Neut # (Auto) 2.47 10^3/uL (1.8-7.7) 06/24/24 17:36 Lymph # (Auto) 2.8 10^3/uL (0.8-4.8) 06/24/24 17:36 [place] # (Auto) 0.5 10^3/uL (0.2-0.9) 06/24/24 17:36 Eos # (Auto) 0.3 10^3/uL (0.0-0.8) 06/24/24 17:36 Baso # (Auto) 0.0 10^3/uL (0.0-0.1) 06/24/24 17:36 Nucleated RBC % (auto) 0 % 06/24/24 17:36 Nucleated RBCs # 0.0 /100WBC 06/24/24 17:36 Sodium 140 mmol/L (136-145) 06/24/24 17:36 Potassium 3.7 mmol/L (3.5-5.1) 06/24/24 17:36 Chloride 107 mmol/L (98-107) 06/24/24 17:36 Carbon Dioxide 22 mmol/L (22-29) 06/24/24 17:36 Anion Gap 14.7 (5-19) 06/24/24 17:36 BUN 9 mg/dL (6-20) 06/24/24 17:36 Creatinine 0.6 mg/dL (0.5-0.9) 06/24/24 17:36 GFR Calculation 112.5 mL/min (90-130) 06/24/24 17:36 Glucose 102 mg/dL (65-115) 06/24/24 17:36 Calculated Osmolality 289 mOsm/kg (285-295) 06/24/24 17:36 Calcium 8.8 mg/dL (8.5-10.5) 06/24/24 17:36 Total Bilirubin 0.4 mg/dL (0.15-1.2) 06/24/24 17:36 AST 20 U/L (0-32) 06/24/24 17:36 ALT 13 U/L (0-33) 06/24/24 17:36 Alkaline Phosphatase 39 U/L (35-105) 06/24/24 17:36 Total Protein 6.2 g/dL (6.6-8.7) L 06/24/24 17:36 Albumin 3.8 g/dL (3.5-5.2) 06/24/24 17:36 Globulin 2.4 g/dL (1.3-4.6) 06/24/24 17:36 Lipase 29 U/L (13-60) 06/24/24 17:36 HCG, Qual Negative (Negative) 06/24/24 17:36 Urine Color Yellow (Yellow) 06/24/24 17:43 Urine Appearance Clear (CLEAR) 06/24/24 17:43 Urine pH 6.0 (5-7) 06/24/24 17:43 Ur Specific [place] 1.008 (1.005-1.030) 06/24/24 17:43 Urine Protein Negative (Negative) 06/24/24 17:43 Urine Glucose (UA) Negative (Normal) 06/24/24 17:43 Urine Ketones Negative (Negative) 06/24/24 17:43 Urine Blood Negative (Negative) 06/24/24 17:43 Urine Nitrate Negative (Negative) 06/24/24 17:43 Urine Bilirubin Negative (Negative) 06/24/24 17:43 Urine Urobilinogen 1.0 mg/dL (Negative) 06/24/24 17:43 Ur Leukocyte Esterase Negative (Negative) 06/24/24 17:43 Amorphous Sediment Not Reportable 06/24/24 17:43 Discharge Plan Discharge Patient Disposition: Home Clinical Impression: Abdominal pain Condition: Stable Prescriptions: Continued sertraline [Zoloft] 100 mg tablet 150 mg PO DAILY@0800 (DME) blood-glucose meter [OneTouch Ultra2 Meter] Kit See Rx Instructions .ROUTE .MEDSUPPLY Qty: 1 0RF Rx Instructions: BEFORE BREAKFAST EVERY MON/WED/FRI acetaminophen 325 mg capsule 325 mg PO Q4H PRN (Reason: fever or pain) Qty: 30 5RF Cepacol Sore Throat (neftali-men) 15-3.6 mg lozenge 1 jose maria mucous membrane Q2H PRN (Reason: sore throat) Qty: 16 5RF Dimetapp DM Cold-Cough (PE) 1-2.5-5 mg/5 mL solution 5 ml PO Q4H PRN (Reason: cough and congestion) Qty: 118 5RF calcium carbonate [Tums] 200 mg calcium (500 mg) tablet,chewable 200 mg PO TID PRN (Reason: dyspepsia) Qty: 30 5RF ibuprofen [IBU-200] 200 mg tablet 200 mg PO Q6H PRN (Reason: fever/pain) Qty: 30 2RF azelastine 137 mcg (0.1 %) aerosol,spray 2 spray intranasal .at bedtime Qty: 30 2RF Rx Instructions: administer into each nostril calcium carbonate-vitamin D3 [Os-Usman 500 + D3] 500 mg-15 mcg (600 unit) tablet 1 tab PO .2 times day Qty: 60 5RF fluticasone propionate [Flonase Allergy Relief] 50 mcg/actuation spray,suspension 1 spray intranasal DAILY Qty: 16 5RF Rx Instructions: administer into each nostril (DME) pen needle, diabetic 33 gauge x 5/32 needle See Rx Instructions .ROUTE .MEDSUPPLY Qty: 100 5RF Rx Instructions: USE WITH OZEPIC PEN Senna Plus 8.6-50 mg capsule 1 tab-cap PO .at bedtime Qty: 30 5RF Hold Instructions: loose stools medroxyprogesterone 150 mg/mL syringe 150 mg IM .every 12 weeks Qty: 1 3RF Rx Instructions: EVERY DEC/MARCH/JUN/SEP (DME) diabetic shoes with 3 inserts See Rx Instructions .Route .MEDSUPPLY Qty: 1 0RF Rx Instructions: As directed to the shoe shashi multivitamin [Daily Multi-Vitamin] Tablet 1 tab PO QAM Qty: 30 5RF cetirizine [Zyrtec] 10 mg tablet 10 mg PO .at bedtime Qty: 30 5RF divalproex 250 mg tablet extended release 24 hr 250 mg PO TID divalproex 500 mg tablet extended release 24 hr 500 mg PO .4 times day bisacodyl [Dulcolax (bisacodyl)] 5 mg tablet,delayed release (DR/EC) 5 mg PO DAILY Qty: 4 0RF Rx Instructions: take as directed for colonoscopy polyethylene glycol 3350 [Miralax] 17 gram/dose powder 17 g PO DAILY Qty: 238 2RF pantoprazole [Protonix] 40 mg tablet,delayed release (DR/EC) 40 mg PO BID 42 Days Qty: 84 1RF (DME) blood sugar diagnostic Strip See Rx Instructions .ROUTE .MEDSUPPLY Qty: 50 5RF Rx Instructions: BEFORE BREAKFAST EVERY MON/WED/FRI ibuprofen 600 mg tablet 600 mg PO TID PRN (Reason: pain) Qty: 45 0RF (DME) lancets [OneTouch Delica Plus Lancet] 33 gauge misc See Rx Instructions .ROUTE .MEDSUPPLY Qty: 100 0RF Rx Instructions: BEFORE BREAKFAST EVERY MON/WED/FRI risperidone 4 mg tablet 2 mg PO TID perphenazine 4 mg Tablet 4 mg PO TID calcium carbonate 500 mg calcium (1,250 mg) Tablet,Chewable 500 mg PO TID PRN (Reason: Indigestion) Imodium A-D 2 mg tablet 2 mg PO Q6H PRN (Reason: loose stool) Qty: 14 0RF Discontinued semaglutide 0.25 mg or 0.5 mg(2 mg/1.5 mL) pen injector 0.25 mg SUBCUT Q7D Qty: 1.5 5RF Rx Instructions: take on Wednesday Discharge Orders: Discharge ED (Routine); Ordered 06/24/24 Ordered By: Cyrus Peña Referrals: Ying Li, PERSONAL SUPPORT WORKER-C [Primary Care Provider] - Patient Instructions: Abdominal Pain (ED), Opioid Safety, Pain Management Activity Restrictions/Additional Instructions: Your workup today did not show any obvious etiology for your abdominal pain. I would recommend stopping your Ozempic for now until you had a chance to discuss with your primary care physician. Follow-up with GI to get scope as planned. Sign Out Sign Out Data: Patient Sign Out occurred on 06/24/24 at 18:08. Patient's care was discussed, and care was transferred from Manny Weiss DO to Cyrus Peña MD. Coding Level of Care Code ED Roll Scale Man for Chg Fwd Documented by User: Cyrus Peña MD 06/24/24 19:57 HPI - Abdominal Pain 2 General: Chief Complaint: Abdominal Pain Stated Complaint: stomach, nausea Time Seen by Provider: 06/24/24 17:06 PFSH ED 2 PFSH: Medical History Type 2 diabetes mellitus with hyperglycemia Obesity, Class I, BMI 30-34.9 Depo-Provera contraceptive status Acid reflux Environmental and seasonal allergies Mental and behavioral problem Surgical History History of venomous spider bite Left leg brown History of cholecystectomy 06/05/13 Family History Mother Diabetes Grandmother Diabetes Social History Smoking and tobacco/nicotine status: never used tobacco/nicotine Second hand smoke exposure: No Alcohol intake: never Substance/Drug Use: never Adopted: No Caregiver/support person: Yes Lives independently: No Household members: caregiver Housing: House Marital status: Single Number of children: 0 service: No Current occupational status: disabled Current occupational exposures/hazards: No Pets and animals: No Sexually active: No Do you think of yourself as: Straight/Heterosexual Current gender identity: Female Special nikos needs: No Course 2 Vital Signs: Vital signs: Vital Signs Temperature 98.2 F 06/24/24 16:59 Pulse Rate 69 06/24/24 20:00 Respiratory Rate 15 06/24/24 19:11 Blood Pressure 100/68 06/24/24 20:00 Pulse Oximetry 97 06/24/24 20:00 Oxygen Delivery Me thod Room Air 06/24/24 20:00 MDM - Abdominal Pain Medical Decision Making Patient with no significant abnormality noted on labs or imaging. No evidence of acute abdominal or surgical abdominal pathology is noted on CT. Do not have any etiology for patient's pain at this time. Discussed with staff member that maybe we should stop the Ozempic as this has been an ongoing chronic problem and patient has been on Ozempic for a while. That may or may not be causing the problem but at least it would be something to try until she is able to get in and see GI and have her endoscopies as planned. Lab Data 06/24/24 17:36 06/24/24 17:36 Labs/Radiology: Radiology Impressions Abdomen/Pelvis CT 06/24/24 17:25 IMPRESSION: No acute findings within the abdomen or pelvis. Laboratory Results WBC 6.03 10^3/uL (3.29-11.43) 06/24/24 17:36 RBC 4.00 10^6/uL (3.85-5.65) 06/24/24 17:36 Hgb 13.40 g/dL (11.27-16.99) 06/24/24 17:36 Hct 39.0 % (36-47) 06/24/24 17:36 MCV 97.5 fl (85-98) 06/24/24 17:36 MCH 33.5 pg (27-33) H 06/24/24 17:36 MCHC 34.4 g/dL (30-55) 06/24/24 17:36 RDW 12.6 % (12.1-15.1) 06/24/24 17:36 Plt Count 107 10^3/cmm (157-399) L 06/24/24 17:36 MPV 10.3 fL (7.4-10.4) 06/24/24 17:36 Neut % (Auto) 40.9 % 06/24/24 17:36 Lymph % (Auto) 45.9 % 06/24/24 17:36 [place] % (Auto) 7.5 % 06/24/24 17:36 Eos % (Auto) 5.0 % 06/24/24 17:36 Baso % (Auto) 0.5 % 06/24/24 17:36 Neut # (Auto) 2.47 10^3/uL (1.8-7.7) 06/24/24 17:36 Lymph # (Auto) 2.8 10^3/uL (0.8-4.8) 06/24/24 17:36 [place] # (Auto) 0.5 10^3/uL (0.2-0.9) 06/24/24 17:36 Eos # (Auto) 0.3 10^3/uL (0.0-0.8) 06/24/24 17:36 Baso # (Auto) 0.0 10^3/uL (0.0-0.1) 06/24/24 17:36 Nucleated RBC % (auto) 0 % 06/24/24 17:36 Nucleated RBCs # 0.0 /100WBC 06/24/24 17:36 Sodium 140 mmol/L (136-145) 06/24/24 17:36 Potassium 3.7 mmol/L (3.5-5.1) 06/24/24 17:36 Chloride 107 mmol/L (98-107) 06/24/24 17:36 Carbon Dioxide 22 mmol/L (22-29) 06/24/24 17:36 Anion Gap 14.7 (5-19) 06/24/24 17:36 BUN 9 mg/dL (6-20) 06/24/24 17:36 Creatinine 0.6 mg/dL (0.5-0.9) 06/24/24 17:36 GFR Calculation 112.5 mL/min (90-130) 06/24/24 17:36 Glucose 102 mg/dL (65-115) 06/24/24 17:36 Calculated Osmolality 289 mOsm/kg (285-295) 06/24/24 17:36 Calcium 8.8 mg/dL (8.5-10.5) 06/24/24 17:36 Total Bilirubin 0.4 mg/dL (0.15-1.2) 06/24/24 17:36 AST 20 U/L (0-32) 06/24/24 17:36 ALT 13 U/L (0-33) 06/24/24 17:36 Alkaline Phosphatase 39 U/L (35-105) 06/24/24 17:36 Total Protein 6.2 g/dL (6.6-8.7) L 06/24/24 17:36 Albumin 3.8 g/dL (3.5-5.2) 06/24/24 17:36 Globulin 2.4 g/dL (1.3-4.6) 06/24/24 17:36 Lipase 29 U/L (13-60) 06/24/24 17:36 HCG, Qual Negative (Negative) 06/24/24 17:36 Urine Color Yellow (Yellow) 06/24/24 17:43 Urine Appearance Clear (CLEAR) 06/24/24 17:43 Urine pH 6.0 (5-7) 06/24/24 17:43 Ur Specific [place] 1.008 (1.005-1.030) 06/24/24 17:43 Urine Protein Negative (Negative) 06/24/24 17:43 Urine Glucose (UA) Negative (Normal) 06/24/24 17:43 Urine Ketones Negative (Negative) 06/24/24 17:43 Urine Blood Negative (Negative) 06/24/24 17:43 Urine Nitrate Negative (Negative) 06/24/24 17:43 Urine Bilirubin Negative (Negative) 06/24/24 17:43 Urine Urobilinogen 1.0 mg/dL (Negative) 06/24/24 17:43 Ur Leukocyte Esterase Negative (Negative) 06/24/24 17:43 Amorphous Sediment Not Reportable 06/24/24 17:43 All radiology interpretation(s) finalized by discharge Discharge Plan Discharge Patient Disposition: Home Clinical Impression: Abdominal pain Condition: Stable Prescriptions: Continued sertraline [Zoloft] 100 mg tablet 150 mg PO DAILY@0800 (DME) blood-glucose meter [[email or web address] Ultra2 Meter] Kit See Rx Instructions .ROUTE .MEDSUPPLY Qty: 1 0RF Rx Instructions: BEFORE BREAKFAST EVERY MON/WED/FRI acetaminophen 325 mg capsule 325 mg PO Q4H PRN (Reason: fever or pain) Qty: 30 5RF Cepacol Sore Throat (neftali-men) 15-3.6 mg lozenge 1 jose maria mucous membrane Q2H PRN (Reason: sore throat) Qty: 16 5RF Dimetapp DM Cold-Cough (PE) 1-2.5-5 mg/5 mL solution 5 ml PO Q4H PRN (Reason: cough and congestion) Qty: 118 5RF calcium carbonate [Tums] 200 mg calcium (500 mg) tablet,chewable 200 mg PO TID PRN (Reason: dyspepsia) Qty: 30 5RF ibuprofen [IBU-200] 200 mg tablet 200 mg PO Q6H PRN (Reason: fever/pain) Qty: 30 2RF azelastine 137 mcg (0.1 %) aerosol,spray 2 spray intranasal .at bedtime Qty: 30 2RF Rx Instructions: administer into each nostril calcium carbonate-vitamin D3 [Os-Usman 500 + D3] 500 mg-15 mcg (600 unit) tablet 1 tab PO .2 times day Qty: 60 5RF fluticasone propionate [Flonase Allergy Relief] 50 mcg/actuation spray,suspension 1 spray intranasal DAILY Qty: 16 5RF Rx Instructions: administer into each nostril (DME) pen needle, diabetic 33 gauge x 5/32 needle See Rx Instructions .ROUTE .MEDSUPPLY Qty: 100 5RF Rx Instructions: USE WITH OZEPIC PEN Senna Plus 8.6-50 mg capsule 1 tab-cap PO .at bedtime Qty: 30 5RF Hold Instructions: loose stools medroxyprogesterone 150 mg/mL syringe 150 mg IM .every 12 weeks Qty: 1 3RF Rx Instructions: EVERY DEC/MARCH/JUN/SEP (DME) diabetic shoes with 3 inserts See Rx Instructions .Route .MEDSUPPLY Qty: 1 0RF Rx Instructions: As directed to the shoe shashi multivitamin [Daily Multi-Vitamin] Tablet 1 tab PO QAM Qty: 30 5RF cetirizine [Zyrtec] 10 mg tablet 10 mg PO .at bedtime Qty: 30 5RF divalproex 250 mg tablet extended release 24 hr 250 mg PO TID divalproex 500 mg tablet extended release 24 hr 500 mg PO .4 times day bisacodyl [Dulcolax (bisacodyl)] 5 mg tablet,delayed release (DR/EC) 5 mg PO DAILY Qty: 4 0RF Rx Instructions: take as directed for colonoscopy polyethylene glycol 3350 [Miralax] 17 gram/dose powder 17 g PO DAILY Qty: 238 2RF pantoprazole [Protonix] 40 mg tablet,delayed release (DR/EC) 40 mg PO BID 42 Days Qty: 84 1RF (DME) blood sugar diagnostic Strip See Rx Instructions .ROUTE .MEDSUPPLY Qty: 50 5RF Rx Instructions: BEFORE BREAKFAST EVERY MON/WED/FRI ibuprofen 600 mg tablet 600 mg PO TID PRN (Reason: pain) Qty: 45 0RF (DME) lancets [OneTouch Delica Plus Lancet] 33 gauge misc See Rx Instructions .ROUTE .MEDSUPPLY Qty: 100 0RF Rx Instructions: BEFORE BREAKFAST EVERY WED/WED/FRI risperidone 4 mg tablet 2 mg PO TID perphenazine 4 mg Tablet 4 mg PO TID calcium carbonate 500 mg calcium (1,250 mg) Tablet,Chewable 500 mg PO TID PRN (Reason: Indigestion) Imodium A-D 2 mg tablet 2 mg PO Q6H PRN (Reason: loose stool) Qty: 14 0RF Discontinued semaglutide 0.25 mg or 0.5 mg(2 mg/1.5 mL) pen injector 0.25 mg SUBCUT Q7D Qty: 1.5 5RF Rx Instructions: take on Wednesday Discharge Orders: Discharge ED (Routine); Ordered 06/24/24 Ordered By: Cyrus Casey Referrals: Ying Li, PERSONAL SUPPORT WORKER-C [Primary Care Provider] - Patient Instructions: Abdominal Pain (ED), Opioid Safety, Pain Management Activity Restrictions/Additional Instructions: Your workup today did not show any obvious etiology for your abdominal pain. I would recommend stopping your Ozempic for now until you had a chance to discuss with your primary care physician. Follow-up with GI to get scope as planned. Sign Out Sign Out Data: Patient Sign Out occurred on 06/24/24 at 18:08. Patient's care was discussed, and care was transferred from Manny Weiss DO to Cyrus Peña MD. Coding Level of Care Code ED Roll Scale Man for Amanda Olivas
--- NOTE | 2024-06-24 17:25 | CTR_ITS ---
PROCEDURE INFORMATION: Exam: CT Abdomen And Pelvis Without Contrast Exam date and time: 06/24/2024 6:14 PM Age: 38 years old Clinical indication: Nausea and vomiting; Abdominal pain; Generalized; Prior surgery; Surgery date: 6+ months; Surgery type: Gb; Patient HX: Diffuse abd pain with n/v/d. TECHNIQUE: Imaging protocol: Computed tomography of the abdomen and pelvis without contrast. Radiation optimization: All CT scans at this facility use at least one of these dose optimization techniques: automated exposure control; mA and/or kV adjustment per patient size (includes targeted exams where dose is matched to clinical indication); or iterative reconstruction. COMPARISON: CT abdomen pelvis w con* [id number] 05/26/2024 4:39 PM RADIATION DOSE METRICS: Total DLP (mGy-cm): 880.27 FINDINGS: Liver: Normal. No mass. Gallbladder and biliary ducts: Status post cholecystectomy. Pancreas: Normal. No ductal dilation. Spleen: Normal. No splenomegaly. Adrenal glands: Normal. No mass. Kidneys and ureters: Normal. No hydronephrosis. Stomach and bowel: Unremarkable. No obstruction. No mucosal thickening. Appendix: No evidence of appendicitis. Intraperitoneal space: Unremarkable. No free air. No significant fluid collection. Vasculature: Unremarkable. No abdominal aortic aneurysm. Lymph nodes: Unremarkable. No enlarged lymph nodes. Urinary bladder: Unremarkable as visualized. Reproductive: Unremarkable as visualized. Bones/joints: Unremarkable. No acute fracture. Soft tissues: Unremarkable. CT/CT abdomen pelvis wo con [id number] IMPRESSION: No acute findings within the abdomen or pelvis.
[2024-06-24 17:46] LABS: Basophils % 0.5 %; Eosinophils # 0.3 10^3/uL (0.0-0.8); Lymphocytes # 2.8 10^3/uL (0.8-4.8); Lymphocytes % 45.9 %; Mean Corpuscular HGB Conc 34.4 g/dL (30-55); Mean Corpuscular Hemoglobin 33.5 pg (27-33); Mean Corpuscular Volume 97.5 fl (85-98); Mean Platelet Volume 10.3 fL (7.4-10.4); Monocytes # 0.5 10^3/uL (0.2-0.9); Monocytes % 7.5 %; Neutrophils # 2.47 10^3/uL (1.8-7.7); Neutrophils % 40.9 %; Nucleated Red Blood Cells % 0 %; Platelet Count 107 10^3/cmm (157-399); Red Cell Distribution Width 12.6 % (12.1-15.1); White Blood Count 6.03 10^3/uL (3.29-11.43)
[2024-06-24 17:51] LABS: Charge for UA Resulting for Rev
[2024-06-24 17:53] LABS: Bilirubin Urine Negative (Negative); Blood Urine Negative (Negative); Glucose Urine UA Negative (Normal); Ketones Urine Negative (Negative); Leukocyte Esterase Urine Negative (Negative); Nitrate Urine Negative (Negative); Protein Urine Negative (Negative); Specific Gravity, Urine 1.008 (1.005-1.030); Urine Appearance Clear (CLEAR); Urine Color Yellow (Yellow)
[2024-06-24 18:00] LABS: Alanine Aminotransferase 13 U/L (0-33); Albumin Level 3.8 g/dL (3.5-5.2); Alkaline Phosphatase 39 U/L (35-105); Anion Gap 14.7 (5-19); Aspartate Amino Transferase 20 U/L (0-32); Blood Urea Nitrogen 9 mg/dL (6-20); Calcium 8.8 mg/dL (8.5-10.5); Carbon Dioxide 22 mmol/L (22-29); Chloride 107 mmol/L (98-107); Creatinine Clr Calc Pharmacy 139.3188; Globulin 2.4 g/dL (1.3-4.6); Glomerular Filtration Rate 112.5 mL/min (90-130); Glucose 102 mg/dL (65-115); HCG, Serum Qual Negative (Negative); Lipase 29 U/L (13-60); Osmolality Calculated 289 mOsm/kg (285-295); Sodium 140 mmol/L (136-145); Total Bilirubin 0.4 mg/dL (0.15-1.2); Total Protein 6.2 g/dL (6.6-8.7)
[2024-06-24 18:01] LABS: Potassium 3.7 mmol/L (3.5-5.1)
[2024-06-24] MEDS: morphine 4 mg/mL SDV 1 mL IVP (19:11)
[2024-06-24] MEDS: ondansetron 2 mg/ML SDV 2 mL 4 MG IVP (19:12)
== END 2024-06-24 20:10 | disposition home or self-care (01) ==
PROVIDERS: Family Medicine; Emergency Provider Emergency Medicine; PCP Nurse Practitioner
DX: R10.9 Unspecified abdominal pain (principal); E11.9 Type 2 diabetes mellitus without complications
CPT/HCPCS: 74176; 80053; 81003; 81015; 83690; 84703; 85025; 96374; 96375; 99285; J2270; J2405

== ENCOUNTER → 2024-07-04 15:12 | Outpatient (BNVA) | payer MEDICARE, MEDICAID, SELFPAY | PROVIDERS: PCP Nurse Practitioner; Visit Provider Nurse Practitioner | DX: Z30.42 Encounter for surveillance of injectable contraceptive (principal); J30.89 Other allergic rhinitis; M79.10 Myalgia, unspecified site; R19.7 Diarrhea, unspecified; Z78.9 Other specified health status; E11.65 Type 2 diabetes mellitus with hyperglycemia; J02.9 Acute pharyngitis, unspecified; K21.9 Gastro-esophageal reflux disease without esophagitis; K59.01 Slow transit constipation | CPT/HCPCS: 87071; 87400; 87426; 87880 ==

== ENCOUNTER 2024-07-26 07:53 | Day surgery (SDC) | payer MEDICARE, MEDICAID, SELFPAY ==
[2024-07-26 08:16] VITALS: BP 111/81; PULSE 76; RESP 18; TEMP 36.2; O2SAT 99; BMI 33.5
[2024-07-26 08:33] LABS: OR HCG Qualitative Urine Negative (Negative)
[2024-07-26] MEDS: sodium chloride 0.9% 1,000 ML 30 ML IV (08:34)
--- NOTE | 2024-07-26 08:38 | ANES.PREANE2 ---
Pre-Anesthetic Assessment Height/Weight: Height 1.63 m Weight 88.451 kg Temp Pulse Resp BP Pulse Ox O2 Del Method 97.2 F L 76 18 111/81 99 Room Air 07/26/24 08:16 07/26/24 08:16 07/26/24 08:16 07/26/24 08:16 07/26/24 08:16 07/26/24 08:16 Operation Date: 07/26/24 08:45 Proposed Procedures p EGD 34005, 55416, G0105, K62.89, K92.1. R19.7, K21.9(Not Applicable) - Ramon Stanford DO s Colonoscopy(Not Applicable) - Ramon Stanford DO Familial anesthetic complications: none Was Beta Maxine taken within 24 hours: N/A Was Clonidine taken within 24 hours: N/A Last intake: Intake Last Liquid Date 07/25/24 Last Liquid Time 18:00 Last Solid Date 07/24/24 Last Solid Time 18:00 Social No alcohol and No tobacco Airway Submandibular: within normal limits Cervical ROM: within normal limits Mallampati: Class II Dentition: full Pulmonary None reported CV/HEM None reported None reported Hepatic None reported GI Gastroesophageal Reflux Disease Metabolic Diabetes Mellitus [facility] None reported Neuropsych Anxiety and Depression mental disability Anesthetic Plan ASA status: 3 Anesthesia: MAC Risk of > 500 ml blood loss (7ml/kg in children): No Medications/Allergies Home Medications Medication Instructions Recorded Confirmed Last Taken Type sertraline 100 mg tablet (Zoloft) 150 mg PO DAILY@0800 12/27/19 07/26/24 07/25/24 History risperidone 4 mg tablet 2 mg PO TID 03/12/21 07/26/24 07/25/24 History blood sugar diagnostic #50 ea 09/06/23 07/04/24 Unknown Rx diabetic shoes with 3 inserts #1 ea 10/21/23 07/04/24 Unknown Rx calcium carbonate 500 mg PO TID PRN Indigestion 03/27/24 07/26/24 Unknown History perphenazine 4 mg tablet 4 mg PO TID 03/27/24 07/26/24 07/25/24 History divalproex 250 mg tablet,extended 250 mg PO TID 04/05/24 07/26/24 07/25/24 History release 24 hr divalproex 500 mg tablet,extended 500 mg PO QID 04/05/24 07/26/24 07/25/24 History release 24 hr lancets 33 gauge (OneTouch Delica #100 ea 04/21/24 07/04/24 Unknown Rx Plus Lancet) acetaminophen 325 mg capsule 325 mg PO Q4H PRN fever or pain 07/04/24 07/26/24 Unknown Rx #30 caps azelastine 137 mcg (0.1 %) nasal 2 spray intranasal .at bedtime #30 07/04/24 07/26/24 Unknown Rx spray mL benzocaine 15 mg-menthol 3.6 mg 1 jose maria mucous membrane Q2H PRN sore 07/04/24 07/26/24 Unknown Rx lozenges (Cepacol Sore Throat throat #16 ea (benzocaine-menthol)) blood-glucose meter #1 ea 07/04/24 07/04/24 Unknown Rx trenixmycocwldw-nbsabicdcoglz-UF 1 5 ml PO Q4H PRN cough and 07/04/24 07/26/24 Unknown Rx mg-2.5 mg-5 mg/5 mL oral solution congestion #118 mL (Dimetapp DM Cold-Cough (PE)) cetirizine 10 mg tablet (Zyrtec) 10 mg PO .at bedtime #30 tabs 07/04/24 07/26/24 07/25/24 Rx fluticasone propionate 50 1 spray intranasal DAILY #16 grams 07/04/24 07/26/24 07/25/24 Rx mcg/actuation nasal spray,suspension (Flonase Allergy Relief) ibuprofen 200 mg tablet (IBU-200) 200 mg PO Q6H PRN fever/pain #30 07/04/24 07/26/24 Unknown Rx tabs loperamide 2 mg tablet (Imodium 2 mg PO Q6H PRN loose stool #14 07/04/24 07/26/24 Unknown Rx A-D) tabs multivitamin (Daily Multi-Vitamin 1 tab PO QAM #30 tabs 07/04/24 07/26/24 07/25/24 Rx tablet) sennosides 8.6 mg-docusate sodium 1 tab-cap PO .at bedtime PRN 07/04/24 07/26/24 Unknown Rx 50 mg capsule (Senna Plus) constipation #30 caps calcium carbonate 500 mg-vitamin 1 tab PO BID 07/20/24 07/26/24 07/25/24 History D3 15 mcg (600 unit) tablet (Os-Usman 500 + D3) medroxyprogesterone 150 mg/mL 150 mg IM .every 12 weeks 07/20/24 07/26/24 Unknown History intramuscular syringe (Depo-Provera) Allergies Allergy/AdvReac Type Severity Reaction Status Date / Time cephalexin [From Keflex] Allergy Intermediate Rash Verified 07/26/24 08:14 Penicillins Allergy Hives Verified 07/26/24 08:14 Current Medications Generic Name Dose Route Start Last Admin Trade Name Freq PRN Reason Stop Dose Admin Sodium Chloride 1,000 mls @ 30 mls/hr 07/26/24 08:15 07/26/24 08:34 Sodium Chloride 0.9% IV 07/27/24 08:14 30 mls/hr .Q24H TRE Administration PFSH Anesthesia Medical History Type 2 diabetes mellitus with hyperglycemia Obesity, Class I, BMI 30-34.9 Depo-Provera contraceptive status Acid reflux Environmental and seasonal allergies Mental and behavioral problem Surgical History History of venomous spider bite Left leg brown History of cholecystectomy 06/05/13 Family History Mother Diabetes Grandmother Diabetes Social History Smoking and tobacco/nicotine status: never used tobacco/nicotine Second hand smoke exposure: No Alcohol intake: never Substance/Drug Use: never Adopted: No Caregiver/support person: Yes Lives independently: No Household members: caregiver Housing: House Marital status: Single Number of children: 0 service: No Current occupational status: disabled Current occupational exposures/hazards: No Pets and animals: No Sexually active: No Do you think of yourself as: Straight/Heterosexual Current gender identity: Female Special nikos needs: No Data Anesthesia Cardiac Studies: No Data to Display
--- NOTE | 2024-07-26 08:46 | PM.HP ---
Providers/Chief Complaint Primary Care Provider: DIMA Pop Chief Complaint: K62.89 History of Present Illness Joellen Blair is a 38 year old female Review of Systems General: Reports: 10 or more systems reviewed and unremarkable except in HPI and below Medications/Allergies Home Medications Medication Instructions Recorded Confirmed Last Taken Type sertraline 100 mg tablet (Zoloft) 150 mg PO DAILY@0800 12/27/19 07/26/24 07/25/24 History risperidone 4 mg tablet 2 mg PO TID 03/12/21 07/26/24 07/25/24 History blood sugar diagnostic #50 ea 09/06/23 07/04/24 Unknown Rx diabetic shoes with 3 inserts #1 ea 10/21/23 07/04/24 Unknown Rx calcium carbonate 500 mg PO TID PRN Indigestion 03/27/24 07/26/24 Unknown History perphenazine 4 mg tablet 4 mg PO TID 03/27/24 07/26/24 07/25/24 History divalproex 250 mg tablet,extended 250 mg PO TID 04/05/24 07/26/24 07/25/24 History release 24 hr divalproex 500 mg tablet,extended 500 mg PO QID 04/05/24 07/26/24 07/25/24 History release 24 hr lancets 33 gauge (OneTouch Delica #100 ea 04/21/24 07/04/24 Unknown Rx Plus Lancet) acetaminophen 325 mg capsule 325 mg PO Q4H PRN fever or pain 07/04/24 07/26/24 Unknown Rx #30 caps azelastine 137 mcg (0.1 %) nasal 2 spray intranasal .at bedtime #30 07/04/24 07/26/24 Unknown Rx spray mL benzocaine 15 mg-menthol 3.6 mg 1 jose maria mucous membrane Q2H PRN sore 07/04/24 07/26/24 Unknown Rx lozenges (Cepacol Sore Throat throat #16 ea (benzocaine-menthol)) blood-glucose meter #1 ea 07/04/24 07/04/24 Unknown Rx nzzlqwgdkdbrwno-uluzndcqtlirk-FM 1 5 ml PO Q4H PRN cough and 07/04/24 07/26/24 Unknown Rx mg-2.5 mg-5 mg/5 mL oral solution congestion #118 mL (Dimetapp DM Cold-Cough (PE)) cetirizine 10 mg tablet (Zyrtec) 10 mg PO .at bedtime #30 tabs 07/04/24 07/26/24 07/25/24 Rx fluticasone propionate 50 1 spray intranasal DAILY #16 grams 07/04/24 07/26/24 07/25/24 Rx mcg/actuation nasal spray,suspension (Flonase Allergy Relief) ibuprofen 200 mg tablet (IBU-200) 200 mg PO Q6H PRN fever/pain #30 07/04/24 07/26/24 Unknown Rx tabs loperamide 2 mg tablet (Imodium 2 mg PO Q6H PRN loose stool #14 07/04/24 07/26/24 Unknown Rx A-D) tabs multivitamin (Daily Multi-Vitamin 1 tab PO QAM #30 tabs 07/04/24 07/26/24 07/25/24 Rx tablet) sennosides 8.6 mg-docusate sodium 1 tab-cap PO .at bedtime PRN 07/04/24 07/26/24 Unknown Rx 50 mg capsule (Senna Plus) constipation #30 caps calcium carbonate 500 mg-vitamin 1 tab PO BID 07/20/24 07/26/24 07/25/24 History D3 15 mcg (600 unit) tablet (Os-Usman 500 + D3) medroxyprogesterone 150 mg/mL 150 mg IM .every 12 weeks 07/20/24 07/26/24 Unknown History intramuscular syringe (Depo-Provera) Allergies Allergy/AdvReac Type Severity Reaction Status Date / Time cephalexin [From Keflex] Allergy Intermediate Rash Verified 07/26/24 08:14 Penicillins Allergy Hives Verified 07/26/24 08:14 PFSH Acute PFSH: Medical History Type 2 diabetes mellitus with hyperglycemia Obesity, Class I, BMI 30-34.9 Depo-Provera contraceptive status Acid reflux Environmental and seasonal allergies Mental and behavioral problem Surgical History History of venomous spider bite Left leg brown History of cholecystectomy 06/05/13 Family History Mother Diabetes Grandmother Diabetes Social History Smoking and tobacco/nicotine status: never used tobacco/nicotine Second hand smoke exposure: No Alcohol intake: never Substance/Drug Use: never Adopted: No Caregiver/support person: Yes Lives independently: No Household members: caregiver Housing: House Marital status: Single Number of children: 0 service: No Current occupational status: disabled Current occupational exposures/hazards: No Pets and animals: No Sexually active: No Do you think of yourself as: Straight/Heterosexual Current gender identity: Female Special nikos needs: No Vitals/I&O/Wt Last Vital Signs Temp 97.2 F L 07/26/24 08:16 Pulse 76 07/26/24 08:16 Resp 18 07/26/24 08:16 BP 111/81 07/26/24 08:16 Pulse Ox 99 07/26/24 08:16 O2 Del Method Room Air 07/26/24 08:16 Weight last 48 hrs Weight 195 lb A&P Assessment and plan (1) Acid reflux: (2) Diarrhea: Plan EGD Diagnostic colonoscopy with random biopsies Attestations Medical Necessity Statement*: home Coding Level of Care Code Acute Code for Chg Fwd Diagnoses Acid reflux K21.9 Diarrhea R19.7
[2024-07-26 09:19] VITALS: BP 107/70; PULSE 65; RESP 12; TEMP 36.2; O2SAT 99
--- NOTE | 2024-07-26 09:55 | ANE.PACU2 ---
Inpatient post-anesthesia follow up: Airway intact: Yes Vital signs: Temperature 97.2 F Pulse Rate 65 Respiratory Rate 12 Blood Pressure 107/70 Pulse Oximetry 99 Oxygen Delivery Me thod Room Air Oxygen Flow Rate Fraction of Inspir ed Oxygen Hydration adequate: Yes Nausea and vomiting: No Pain level: 1 Mental status: Baseline
[2024-07-26 10:31] LABS: C.Diff PCR (Lab) NEGATIVE (Negative)
== END 2024-07-26 09:54 | disposition home or self-care (01) ==
PROVIDERS: Student in an Organized Health Care Education/Training Program; PCP Nurse Practitioner; Visit Provider Surgery
PROC: 0DJ08ZZ Inspection of Upper Intestinal Tract, Via Natural or Artificial Opening Endoscopic (ICD-10-PCS; CPT 43235; principal; 2024-07-26 08:45)
PROC: 0DJD8ZZ Inspection of Lower Intestinal Tract, Via Natural or Artificial Opening Endoscopic (ICD-10-PCS; CPT 45378; 2024-07-26 08:45)
DX: K92.1 Melena (principal); K62.89 Other specified diseases of anus and rectum; R19.7 Diarrhea, unspecified; K21.9 Gastro-esophageal reflux disease without esophagitis; K29.50 Unspecified chronic gastritis without bleeding; D12.5 Benign neoplasm of sigmoid colon; E11.65 Type 2 diabetes mellitus with hyperglycemia; K57.30 Diverticulosis of large intestine without perforation or abscess without bleeding
CPT/HCPCS: 43239; 45380; 45385; 81025; 82274; 83630; 87045; 87177; 87209; 87427; 87449; 87493; 88305; 88342; J2704; J7030

== ENCOUNTER 2024-08-03 19:03 | Emergency (ER) | payer MEDICARE, MEDICAID, SELFPAY ==
[2024-08-03 19:16] VITALS: BP 100/71; PULSE 57; RESP 18; TEMP 36.6; O2SAT 99
--- NOTE | 2024-08-03 19:18 | XRR_ITS ---
PROCEDURE INFORMATION: Exam: XR Right Wrist Exam date and time: 08/03/2024 7:36 PM Age: 38 years old Clinical indication: Injury or trauma; Fall; Blunt trauma (contusions or hematomas); Wrist; Right TECHNIQUE: Imaging protocol: Radiologic exam of the right wrist. Views: 3 or more views. COMPARISON: No relevant prior studies available. FINDINGS: Bones/joints: Normal. Soft tissues: Normal. XR/XR wrist RT min 3V* [id number] IMPRESSION: No acute findings.
--- NOTE | 2024-08-03 19:33 | ED_ITS ---
HPI - Extremity Problem General: Chief complaint: Extremity Injury, Upper Stated complaint: right wrist injury Time Seen by Provider: 08/03/24 19:24 History of Present Illness: 38-year-old female with history of type 2 diabetes, obesity and mental disabilities who presents to the emergency room with her caregiver after she had a fall about 4 hours ago. She fell on concrete and landed on her right wrist. She has pain and some swelling in her right wrist no obvious deformity. She did hit her left cheek on the concrete. She had no loss of consciousness no altered mental status. No bruising. No nausea or vomiting. Related Data Home Medications Medication Instructions Recorded Confirmed sertraline 100 mg tablet (Zoloft) 150 mg PO DAILY@0800 12/27/19 07/26/24 risperidone 4 mg tablet 2 mg PO TID 03/12/21 07/26/24 calcium carbonate 500 mg PO TID PRN Indigestion 03/27/24 07/26/24 perphenazine 4 mg tablet 4 mg PO TID 03/27/24 07/26/24 divalproex 250 mg tablet,extended 250 mg PO TID 04/05/24 07/26/24 release 24 hr divalproex 500 mg tablet,extended 500 mg PO QID 04/05/24 07/26/24 release 24 hr calcium carbonate 500 mg-vitamin 1 tab PO BID 07/20/24 07/26/24 D3 15 mcg (600 unit) tablet (Os-Usman 500 + D3) medroxyprogesterone 150 mg/mL 150 mg IM .every 12 weeks 07/20/24 07/26/24 intramuscular syringe (Depo-Provera) Previous Rx's Medication Instructions Recorded blood sugar diagnostic #50 ea 09/06/23 diabetic shoes with 3 inserts #1 ea 10/21/23 lancets 33 gauge (OneTouch Delica #100 ea 04/21/24 Plus Lancet) acetaminophen 325 mg capsule 325 mg PO Q4H PRN fever or pain 07/04/24 #30 caps azelastine 137 mcg (0.1 %) nasal 2 spray intranasal .at bedtime #30 07/04/24 spray mL benzocaine 15 mg-menthol 3.6 mg 1 jose maria mucous membrane Q2H PRN sore 07/04/24 lozenges (Cepacol Sore Throat throat #16 ea (benzocaine-menthol)) blood-glucose meter #1 ea 07/04/24 dhkatydpzbdlofv-xocfblmffnpdu-BR 1 5 ml PO Q4H PRN cough and 07/04/24 mg-2.5 mg-5 mg/5 mL oral solution congestion #118 mL (Dimetapp DM Cold-Cough (PE)) cetirizine 10 mg tablet (Zyrtec) 10 mg PO .at bedtime #30 tabs 07/04/24 fluticasone propionate 50 1 spray intranasal DAILY #16 grams 07/04/24 mcg/actuation nasal spray,suspension (Flonase Allergy Relief) ibuprofen 200 mg tablet (IBU-200) 200 mg PO Q6H PRN fever/pain #30 07/04/24 tabs loperamide 2 mg tablet (Imodium 2 mg PO Q6H PRN loose stool #14 07/04/24 A-D) tabs multivitamin (Daily Multi-Vitamin 1 tab PO QAM #30 tabs 07/04/24 tablet) sennosides 8.6 mg-docusate sodium 1 tab-cap PO .at bedtime PRN 07/04/24 50 mg capsule (Senna Plus) constipation #30 caps Allergies Allergy/AdvReac Type Severity Reaction Status Date / Time cephalexin [From Keflex] Allergy Intermediate Rash Verified 08/03/24 19:21 Penicillins Allergy Hives Verified 08/03/24 19:21 Review of Systems Narrative: Constitutional symptoms: Negative except as documented in HPI. Skin symptoms: Negative except as documented in HPI. Eye symptoms: Negative except as documented in HPI. ENMT symptoms: Negative except as documented in HPI. Respiratory symptoms: Negative except as documented in HPI. Cardiovascular symptoms: Negative except as documented in HPI. Gastrointestinal symptoms: Negative except as documented in HPI. Genitourinary symptoms: Negative except as documented in HPI. Musculoskeletal symptoms: Negative except as documented in HPI. Neurologic symptoms: Negative except as documented in HPI. Psychiatric symptoms: Negative except as documented in HPI. Endocrine symptoms: Negative except as documented in HPI. PFSH ED PFSH: Medical History Type 2 diabetes mellitus with hyperglycemia Obesity, Class I, BMI 30-34.9 Depo-Provera contraceptive status Acid reflux Environmental and seasonal allergies Mental and behavioral problem Surgical History History of venomous spider bite Left leg brown History of cholecystectomy 06/05/13 Family History Mother Diabetes Grandmother Diabetes Social History Smoking and tobacco/nicotine status: never used tobacco/nicotine Second hand smoke exposure: No Alcohol intake: never Substance/Drug Use: never Adopted: No Caregiver/support person: Yes Lives independently: No Household members: caregiver Housing: House Marital status: Single Number of children: 0 service: No Current occupational status: disabled Current occupational exposures/hazards: No Pets and animals: No Sexually active: No Do you think of yourself as: Straight/Heterosexual Current gender identity: Female Special nikos needs: No Physical Exam Narrative: EXAM NARRATIVE: General: Alert, no acute distress. Skin: warm and dry Head: Normocephalic Neck: Trachea midline Eye: Extraocular movements are intact. Ears, nose, mouth and throat: Oral mucosa moist Respiratory: Respirations are non-labored Musculoskeletal: Some swelling of the right wrist. No obvious deformity. Very tender to palpation. Neurovascularly intact. Neurological: Alert and oriented, No focal neurological deficit observed. Psychiatric: Cooperative, appropriate mood & affect. Course Vital Signs: Vital signs: Vital Signs Temperature 97.8 F 08/03/24 19:16 Pulse Rate 57 L 08/03/24 19:16 Respiratory Rate 18 08/03/24 19:16 Blood Pressure 100/71 08/03/24 19:16 Pulse Oximetry 99 08/03/24 19:16 MDM - Extremity (Nontraumatic) Medical Decision Making Medical decision making: Differential diagnosis including but not limited to and based on the above HPI, review of systems and physical exam: Concern for wrist sprain versus wrist fracture. X-ray of the right wrist: No obvious fractures or dislocations. Films were interpreted by myself the emergency room provider and pending final radiology review. I reviewed the patient's medical record. Reexamination: Patient still some pain and swelling in her left wrist. Ice is being applied along with an Lionel bandage. No altered mental status. No focal motor deficits. She is at her baseline. No increased work of breathing. Assessment and plan: Wrist sprain ?Ibuprofen, ice, Lionel bandage. - Discharged home - Discussed plan with patient. Answered any questions. - Evaluation and treatment of this problem were appropriate in the emergency setting. XR interpretation done by ED provider, pending radiology final review Discharge Plan Discharge Patient Disposition: Home Clinical Impression: Sprain and strain of wrist Condition: Stable Prescriptions: No Action sertraline [Zoloft] 100 mg tablet 150 mg PO DAILY@0800 (DME) diabetic shoes with 3 inserts See Rx Instructions .Route .MEDSUPPLY Qty: 1 0RF Rx Instructions: As directed to the shoe [place] divalproex 250 mg tablet extended release 24 hr 250 mg PO TID divalproex 500 mg tablet extended release 24 hr 500 mg PO QID (DME) blood sugar diagnostic Strip See Rx Instructions .ROUTE .MEDSUPPLY Qty: 50 5RF Rx Instructions: BEFORE BREAKFAST EVERY MON/WED/FRI acetaminophen 325 mg capsule 325 mg PO Q4H PRN (Reason: fever or pain) Qty: 30 5RF azelastine 137 mcg (0.1 %) spray,non-aerosol 2 spray intranasal .at bedtime Qty: 30 2RF Rx Instructions: administer into each nostril Cepacol Sore Throat (neftali-men) 15-3.6 mg lozenge 1 jose maria mucous membrane Q2H PRN (Reason: sore throat) Qty: 16 5RF Dimetapp DM Cold-Cough (PE) 1-2.5-5 mg/5 mL solution 5 ml PO Q4H PRN (Reason: cough and congestion) Qty: 118 5RF (DME) blood-glucose meter Kit See Rx Instructions .ROUTE .MEDSUPPLY Qty: 1 0RF Rx Instructions: BEFORE BREAKFAST EVERY MON/WED/FRI cetirizine [Zyrtec] 10 mg tablet 10 mg PO .at bedtime Qty: 30 5RF fluticasone propionate [Flonase Allergy Relief] 50 mcg/actuation spray,suspension 1 spray intranasal DAILY Qty: 16 5RF Rx Instructions: administer into each nostril ibuprofen [IBU-200] 200 mg tablet 200 mg PO Q6H PRN (Reason: fever/pain) Qty: 30 2RF Hold Instructions: Resume on 07/28/24. Imodium A-D 2 mg tablet 2 mg PO Q6H PRN (Reason: loose stool) Qty: 14 0RF multivitamin [Daily Multi-Vitamin] Tablet 1 tab PO QAM Qty: 30 5RF Senna Plus 8.6-50 mg capsule 1 tab-cap PO .at bedtime PRN (Reason: constipation) Qty: 30 5RF Hold Instructions: loose stools (DME) lancets [OneTouch Delica Plus Lancet] 33 gauge misc See Rx Instructions .ROUTE .MEDSUPPLY Qty: 100 0RF Rx Instructions: BEFORE BREAKFAST EVERY MON/WED/WED risperidone 4 mg tablet 2 mg PO TID perphenazine 4 mg Tablet 4 mg PO TID calcium carbonate 500 mg calcium (1,250 mg) Tablet,Chewable 500 mg PO TID PRN (Reason: Indigestion) medroxyprogesterone [Depo-Provera] 150 mg/mL syringe 150 mg IM .every 12 weeks Rx Instructions: EVERY DEC/MARCH/JUN/SEP calcium carbonate-vitamin D3 [Os-Usman 500 + D3] 500 mg-15 mcg (600 unit) tablet 1 tab PO BID Discharge Orders: Discharge ED (Routine); Ordered 08/03/24 Ordered By: Divina Cartagena Referrals: Ying Li, [employer]PRESENT[employer] [Primary Care Provider] - Patient Instructions: Wrist Sprain (ED) Activity Restrictions/Additional Instructions: Thank you for choosing [facility] for your healthcare needs today. Please realize this is an emergency room and that we are providing you with a medical screening exam and this may not be complete and all inclusive of all the testing and or work up that you may need to determine your ailment or severity of your illness. You have been screened and evaluated and felt safe for discharge. Health conditions do change or evolve sometimes and as such it is important that you follow up with your Primary Doctor to be re checked, 3-5 days is a general good time frame for follow up. You are always welcome to return to the ED for re assessment if your symptoms are worsening or you have new concerns Coding Level of Care Code ED [place] [facility] for Amanda Olivas
[2024-08-03 20:54] VITALS: BP 107/76; PULSE 52; RESP 16; O2SAT 100
== END 2024-08-03 20:55 | disposition home or self-care (01) ==
PROVIDERS: Emergency Provider Emergency Medicine; PCP Nurse Practitioner
DX: S63.501A Unspecified sprain of right wrist, initial encounter (principal); S66.911A Strain of unspecified muscle, fascia and tendon at wrist and hand level, right hand, initial encounter; E11.9 Type 2 diabetes mellitus without complications; W19.XXXA Unspecified fall, initial encounter
CPT/HCPCS: 73110; 99283

== ENCOUNTER → 2024-08-14 10:02 | Outpatient (BNVA) | payer MEDICARE, MEDICAID, SELFPAY | PROVIDERS: PCP Nurse Practitioner; Visit Provider Surgery | DX: Z09 Encounter for follow-up examination after completed treatment for conditions other than malignant neoplasm (principal); Q40.2 Other specified congenital malformations of stomach; D37.4 Neoplasm of uncertain behavior of colon | CPT/HCPCS: 99214 ==

== ENCOUNTER → 2024-08-24 08:45 | Outpatient (BNVA) | payer MEDICARE, MEDICAID, SELFPAY | PROVIDERS: PCP Nurse Practitioner; Visit Provider Podiatrist Foot & Ankle Surgery | DX: B35.1 Tinea unguium (principal); L84 Corns and callosities; G62.9 Polyneuropathy, unspecified; E11.42 Type 2 diabetes mellitus with diabetic polyneuropathy | CPT/HCPCS: 11721 ==

== ENCOUNTER → 2024-09-25 12:00 | Outpatient (BNVA) | payer MEDICARE, MEDICAID, SELFPAY | PROVIDERS: PCP Nurse Practitioner; Visit Provider Clinical Nurse Specialist Adult Health | DX: J02.9 Acute pharyngitis, unspecified (principal) | CPT/HCPCS: 87071; 87880 ==

== ENCOUNTER → 2024-10-31 08:48 | Outpatient (BNVA) | payer MEDICARE, MEDICAID, SELFPAY | PROVIDERS: PCP Nurse Practitioner; Visit Provider Podiatrist Foot & Ankle Surgery | DX: B35.1 Tinea unguium (principal); L84 Corns and callosities; G62.9 Polyneuropathy, unspecified; E11.42 Type 2 diabetes mellitus with diabetic polyneuropathy | CPT/HCPCS: 11055; 11721 ==

== ENCOUNTER → 2024-11-06 11:59 | Outpatient (BNVA) | payer MEDICARE, MEDICAID, SELFPAY | PROVIDERS: PCP Nurse Practitioner; Visit Provider Nurse Practitioner | DX: E11.65 Type 2 diabetes mellitus with hyperglycemia (principal) | CPT/HCPCS: 74018; 80053; 80061; 82043; 83036 ==

== ENCOUNTER → 2024-12-07 18:49 | Outpatient (BNVA) | payer MEDICARE, MEDICAID, SELFPAY | PROVIDERS: PCP Nurse Practitioner; Visit Provider Registered Nurse Neonatal Intensive Care | DX: R39.9 Unspecified symptoms and signs involving the genitourinary system (principal); N39.0 Urinary tract infection, site not specified | CPT/HCPCS: 81000; 87086 ==

== ENCOUNTER → 2024-12-27 10:34 | Outpatient (BNVA) | payer MEDICARE, MEDICAID, SELFPAY | PROVIDERS: PCP Nurse Practitioner; Visit Provider Nurse Practitioner | DX: K21.9 Gastro-esophageal reflux disease without esophagitis (principal); E55.9 Vitamin D deficiency, unspecified | CPT/HCPCS: 74018; 80053; 81000; 82306; 85025 ==

== ENCOUNTER → 2025-01-02 08:55 | Outpatient (BNVA) | payer MEDICARE, MEDICAID, SELFPAY | PROVIDERS: PCP Nurse Practitioner; Visit Provider Podiatrist Foot & Ankle Surgery | DX: E11.42 Type 2 diabetes mellitus with diabetic polyneuropathy (principal); B35.1 Tinea unguium; L84 Corns and callosities; G62.9 Polyneuropathy, unspecified; S93.401A Sprain of unspecified ligament of right ankle, initial encounter; X58.XXXA Exposure to other specified factors, initial encounter | CPT/HCPCS: 11056; 11721; 99213 ==

== ENCOUNTER → 2025-01-22 11:09 | Outpatient (BNVA) | payer MEDICARE, MEDICAID, SELFPAY | PROVIDERS: PCP Nurse Practitioner; Visit Provider Nurse Practitioner | DX: Z12.4 Encounter for screening for malignant neoplasm of cervix (principal); K59.01 Slow transit constipation | CPT/HCPCS: 74018; 80053; 81003; 85025; 87086; 87184; 88175 ==

== ENCOUNTER → 2025-03-13 09:14 | Outpatient (BNVA) | payer MEDICARE, MEDICAID, SELFPAY | PROVIDERS: PCP Nurse Practitioner; Visit Provider Podiatrist Foot & Ankle Surgery | DX: E11.42 Type 2 diabetes mellitus with diabetic polyneuropathy (principal); B35.1 Tinea unguium; L84 Corns and callosities; G62.9 Polyneuropathy, unspecified | CPT/HCPCS: 11721; 99213 ==

== ENCOUNTER → 2025-04-24 11:07 | Outpatient (BNVA) | payer MEDICARE, MEDICAID, SELFPAY | PROVIDERS: PCP Nurse Practitioner; Visit Provider Nurse Practitioner | DX: Z12.4 Encounter for screening for malignant neoplasm of cervix (principal); K59.01 Slow transit constipation | CPT/HCPCS: 80053; 85025 ==

== ENCOUNTER → 2025-05-15 09:42 | Outpatient (BNVA) | payer MEDICARE, MEDICAID, SELFPAY | PROVIDERS: PCP Nurse Practitioner; Visit Provider Podiatrist Foot & Ankle Surgery | DX: E11.42 Type 2 diabetes mellitus with diabetic polyneuropathy (principal); B35.1 Tinea unguium; L84 Corns and callosities; M72.2 Plantar fascial fibromatosis; G62.9 Polyneuropathy, unspecified | CPT/HCPCS: 11055; 11721; 99213 ==

== ENCOUNTER → 2025-06-22 14:40 | Outpatient (BNVA) | payer MEDICARE, MEDICAID, SELFPAY | PROVIDERS: PCP Nurse Practitioner | DX: R39.9 Unspecified symptoms and signs involving the genitourinary system (principal) | CPT/HCPCS: 81000; 87086 ==

== ENCOUNTER → 2025-07-26 09:26 | Outpatient (BNVA) | payer MEDICARE, MEDICAID, SELFPAY | PROVIDERS: PCP Nurse Practitioner; Visit Provider Podiatrist Foot & Ankle Surgery | DX: E11.42 Type 2 diabetes mellitus with diabetic polyneuropathy (principal); B35.1 Tinea unguium; L84 Corns and callosities; G62.9 Polyneuropathy, unspecified | CPT/HCPCS: 11056; 11721 ==

== ENCOUNTER → 2025-10-15 11:34 | Outpatient (BNVA) | payer MEDICARE, MEDICAID, SELFPAY | PROVIDERS: PCP Nurse Practitioner; Visit Provider Nurse Practitioner | DX: Z13.6 Encounter for screening for cardiovascular disorders (principal) | CPT/HCPCS: 80053; 80061 ==

== ENCOUNTER → 2025-10-31 10:57 | Outpatient (BNVA) | payer MEDICARE, MEDICAID, SELFPAY | PROVIDERS: PCP Nurse Practitioner; Visit Provider Podiatrist Foot & Ankle Surgery | DX: E11.8 Type 2 diabetes mellitus with unspecified complications (principal); B35.1 Tinea unguium; L84 Corns and callosities; G62.9 Polyneuropathy, unspecified; E11.42 Type 2 diabetes mellitus with diabetic polyneuropathy | CPT/HCPCS: 11056; 11721 ==